=== PATIENT | male | born 1945 | race Caucasian/White ===

== ENCOUNTER 2018-06-10 22:22 | Emergency (ER) | payer MEDICARE, SELFPAY ==
--- NOTE | 2018-06-10 22:34 | DI.RAD.S_ITS ---
PROCEDURE: XR WRIST RT MIN 3V INDICATIONS: obvious deformity TECHNIQUE: 2 views of the wrist were acquired. COMPARISON: None. FINDINGS: Bones: There is a comminuted fracture in the distal radial metaphysis with mild displacement and angulation. There is old fracture and deformity of the trapezium and the first metacarpal. 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 No suspicious bony lesions. There is osteopenia. Scaphoid view: Scaphoid appears intact. Soft tissues: No suspicious soft tissue calcifications. Soft tissue swelling IMPRESSION: 1. Comminuted radial metaphyseal fracture with mild displacement and angulation. 2. Old fracture/deformity of trapezium and the first metacarpal. 3. 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 4. Osteopenia. Dictated by: Nilton Gonzalez M.D. on 06/11/2018 at 8:41 Approved by: Nilton Gonzalez M.D. on 06/11/2018 at 8:44
--- NOTE | 2018-06-10 22:34 | DI.RAD.S_ITS ---
PROCEDURE: XR FINGER RT MIN 2V INDICATIONS: obvious deformity TECHNIQUE: AP hand, 2 views of the third finger(s) acquired. COMPARISON: None. FINDINGS: Bones: There is posterior dislocation of the Seldinger at the proximal interphalangeal joint. Comminuted radial metaphyseal fracture is present without definite involvement at the radiocarpal joint. There is old fracture/deformity of the first metacarpal. Soft tissues: No suspicious soft tissue calcifications. IMPRESSION: 1. Posterior dislocation of the third finger at the proximal interphalangeal joint. 2. Comminuted radial metaphyseal fracture. Please see wrist x-ray for detail. Dictated by: Nilton Gonzalez M.D. on 06/11/2018 at 8:37 Transcribed by: BLANCA on 06/11/2018 at 8:41 Approved by: Nilton Gonzalez M.D. on 06/11/2018 at 10:25
[2018-06-10 22:36] VITALS: BP 125/56; PULSE 86; RESP 16; TEMP 37; O2SAT 100; BMI 27.3
[2018-06-10 22:49] LABS: Add Manual Diff / Slide Review NO; Basophils Percent Auto 0.5 % (0-2); Eosinophils Percent Auto 0.4 % (2-4); Hemoglobin 14.2 g/dL (13.5-17.5); Lymphocytes Percent Auto 19.7 % (25-40); Mean Corpuscular HGB Conc 33.8 % (30-36); Mean Corpuscular Hemoglobin 32.7 PG (26-34); Mean Corpuscular Volume 96.8 fL (80-100); Monocytes Percent Auto 8.2 % (3-14); Neutrophils Absolute Auto 7000 /uL (3000-5900); Neutrophils Percent Auto 71.2 % (50-75); Platelet Count 219 X10^3/uL (150-400); Red Blood Cell Count 4.34 X10^6/uL (4.5-5.9); Red Cell Distribution Width 13.6 % (11.6-14.8); White Blood Cell Count 9.8 X10^3/uL (4.5-11.0)
[2018-06-10] MEDS: MIDAZOLAM 5 MG/ML VIAL NASAL (22:50)
[2018-06-10] MEDS: fentaNYL 100 MCG/2 ML INJ 50 MCG NASAL (22:50)
[2018-06-10 22:51] LABS: Blood Urea Nitrogen 24 mg/dL (9-20); Calcium 9.3 mg/dL (8.4-10.2); Carbon Dioxide 25 mmol/L (22-32); Chloride 103 mmol/L (98-107); Estimated Glomerular Filt Rate > 60.0 mL/min (>60); Glucose 163 mg/dL (80-110); HEMOLYSIS < 15 (0-50); Sodium 140 mmol/L (137-145)
[2018-06-10 22:58] VITALS: BP 125/56; PULSE 86; RESP 16; TEMP 37; O2SAT 100; BMI 27.3
[2018-06-11] VITALS (9 sets, daily range): BP systolic 96–159; BP diastolic 68–82; PULSE 78–83; RESP 12–19; O2SAT 96–100
--- NOTE | 2018-06-11 00:29 | DI.RAD.S_ITS ---
PROCEDURE: XR WRIST RT 2V INDICATIONS: post reduction TECHNIQUE: 2 views of the wrist were acquired. COMPARISON: [facility], CR, XR WRIST RT MIN 3V, 06/10/2018, 22:59. [facility], CR, XR FINGER RT MIN 2V, 06/10/2018, 22:53. FINDINGS: Bones: There is a comminuted distal radial metaphyseal fracture. Alignment is improved. Dislocation at the third proximal interphalangeal joint has been reduced. Old fracture deformity of the trapezium and the first metacarpal. Soft tissues: No suspicious soft tissue calcifications. IMPRESSION: 1. Comminuted distal radial metaphyseal fracture without definitive involvement of the articular surface. There is improved alignment after closed reduction. 2. The third finger dislocation at the proximal interphalangeal joint has been reduced. The alignment is anatomic. No definitive fracture but bone details are obscured by overlying cast. Dictated by: Nilton Gonzalez M.D. on 06/11/2018 at 8:46 Approved by: Nilton Gonzalez M.D. on 06/11/2018 at 8:50
[2018-06-11] MEDS: PROPOFOL 200 MG/20 ML VIAL 110 MG IV (00:41)
[2018-06-11] MEDS: OXYCODONE/ACETAMINOPHEN 5/325 TABLET 2 TAB PO (00:52)
[2018-06-11] MEDS: fentaNYL 100 MCG/2 ML INJ 25 MCG IV (00:53)
[2018-06-11] MEDS: OXYCODONE/APAP 5/325 PREPACK 1 BOTTLE MISC (02:00)
--- NOTE | 2018-06-11 03:12 | ED_ITS ---
HPI - Extremity Injury (Upper) General Chief Complaint: Extremity Injury, Upper Stated Complaint: Possible Hand Fracture Time Seen by Provider: 06/10/18 22:34 Source: patient and family Mode of arrival: ambulatory Limitations: no limitations History of Present Illness HPI narrative: 72-year-old male presents with his and a chief complaint of a significant right hand and wrist injury. He had stepped outside and had a mechanical fall, tripping on an outstretched wrist and obviously fractured and or dislocated his hand and wrist. He presents with significant pain in the tremendous deformity including numbness tingling, pallor and significant pain to right hand and fingers. He denies any head neck or back pain. He denies any chest pain or shortness of breath. He states his fall was purely mechanical. He states he last ate a few hours ago. He is left hand dominant MD complaint: injury to: right Onset (ago): minute(s) Other Extremity Injury: Right: fingers, hand and wrist Other injuries: none Handedness: left Place: home Severity: severe Relieving factors: none Exacerbating factors: none Context: fall and direct blow Associated symptoms: weakness and numbness Related Data Home Medications Medication Instructions Recorded Confirmed atorvastatin 10 mg tablet 5 mg PO DAILY tab 03/25/18 06/04/18 coenzyme Q10 100 mg capsule 100 mg PO DAILY 03/25/18 06/04/18 etodolac 400 mg tablet 400 mg PO BID 03/25/18 06/04/18 felodipine ER 5 mg tablet,extended 5 mg PO DAILY 03/25/18 06/04/18 release 24 hr finasteride 1 mg tablet 1 mg PO DAILY 03/25/18 06/04/18 sertraline 50 mg tablet 50 mg PO DAILY 03/25/18 06/04/18 trazodone 50 mg tablet 50 mg PO BEDTIME PRN 03/25/18 06/04/18 Previous Rx's Medication Instructions Recorded oxycodone 5 mg PO Q4-6H PRN #30 cap 06/11/18 Allergies Allergy/AdvReac Type Severity Reaction Status Date / Time No Known Drug Allergies Allergy Unverified 03/25/18 13:30 Review of Systems Review of Systems All systems reviewed & are unremarkable except as noted in HPI and below Constitutional Denies chills, Denies fever(s), Denies lethargy and Denies weakness Eyes Denies change in vision, Denies eye discharge, Denies irritation and Denies loss of vision ENT Ears, Nose, Mouth, and Throat: Denies change in voice, Denies neck pain and Denies sore throat Cardiovascular Denies chest pain, Denies irregular heart rhythm, Denies lightheadedness, Denies palpitations, Denies dyspnea, Denies dyspnea on exertion and Denies orthopnea Respiratory Denies cough, Denies dyspnea, Denies dyspnea on exertion and Denies wheezing Gastrointestinal Gastrointestinal: Denies abdominal pain, Denies change in bowel habits, Denies diarrhea, Denies nausea and Denies vomiting Genitourinary Denies hematuria, Denies flank pain, Denies urinary incontinence and Denies urinary urgency Musculoskeletal Reports deformity, Reports joint swelling, Reports limited range of motion, Denies neck pain, Reports numbness and Reports tingling Integumentary/Breasts Denies pruritus, Denies erythema, Denies rash and Denies wounds Neurologic Denies confusion, Denies loss of vision, Reports numbness, Reports tingling and Denies weakness Psychiatric Denies anxiety, Denies confusion, Denies depression, Denies homicidal ideation and Denies suicidal ideation Endocrine Denies palpitations Hematologic/Lymphatic Denies easy bruising Allergic/Immunologic Denies wheezing PFSH Medical History Anxiety (Acute) Cervical stenosis of spine (Acute) Depression (Acute) Hyperlipidemia (Acute) Hypertension (Acute) Inguinal hernia (Acute) Osteoarthritis (Acute) Surgical History Ankylosis, left hip (Chronic) H/O foot surgery (Resolved) Family History Father Cancer Social History marital status: household members: spouse lives independently: Yes Previous occupational history: [employer] Smoking Status: Never smoker alcohol intake: never substance use type: does not use Exam Narrative Exam Narrative: 72-year-old male in significant distress, clutching his right hand and wrist, in obvious tremendous pain Initial Vital Signs Initial Vital Signs: Vital Signs Temperature 98.6 F 06/10/18 22:36 Pulse Rate 86 06/10/18 22:36 Respiratory Rate 16 06/10/18 22:36 Blood Pressure 125/56 H 06/10/18 22:36 Pulse Oximetry 100 06/10/18 22:36 Const General: cooperative, well developed and acute distress Nutritional Appearance: well nourished Orientation: alert, awake, oriented x3 and not confused HENND Head: normocephalic and atraumatic Ears: external ears normal and TM's normal bilaterally Nose: external nose normal and No nasal discharge Face and sinus: sinuses nontender, face symmetric, no sinus tenderness and No dry mucous membranes Mouth: oral mucosae normal and moist mucous membranes Teeth and gingiva: dentition normal Throat: tonsils normal and uvula midline Eyes General: appearance normal, both eyes and all related structures Eyelids: eyelids normal Conjunctivae: conjunctivae normal Sclera: sclerae normal Pupils: PERRL EOM: EOM intact bilaterally Neck Neck: normal visual inspection, trachea midline, No lymphadenopathy, No midline deformity and No JVD Lymphatic: No lymphedema Cardio Rate: regular rate Rhythm: regular rhythm Heart Sounds: no click, no gallops, no murmurs and no rubs Pulses: normal peripheral pulses Back/Spine/Pelvis Back: No CVA tenderness Cervical Spine: cervical ROM normal and No pain with cervical ROM Thoracic/Lumbar Spine: thoracic and lumbar spine normal to inspection Skin General: no rashes or lesions noted, No jaundice and No petechiae Neuro General: alert, awake, oriented x3 and gait normal Cognition: normal cognition Speech: speech normal Gait: normal gait Motor: strength abnormal (Strength and right wrist and fingers compromise) Sensory Exam: upper extremity Extrem Right upper extremity: hand Procedures Orthopedic Fracture Reduction Fracture #1: Time Out Performed: Yes Side: right Fracture Reduction Location: radius Analgesia: other (Initially fentanyl and Versed given, not with intent to sedate, but with intent to provide analgesia and comfort while emergent neurovascular compromise is addressed) Technique: traction/counter-traction Post Reduction X-rays Demonstrate: anatomical reduction Post-reduction neuro exam: intact Post-reduction vascular exam: intact Additional Comments: After initial reduction patient has IV placed and x- rays are performed noting fracture with some displacement at the distal radius and a dislocated middle finger. A 2nd reduction performed with splint applied, this time true procedural sedation with the use of propofol (110 mg). Respiratory therapy and nursing at the bedside with appropriate monitoring including end-tidal CO2 and blood pressure. Suction and pulse ox at the bedside. Orthopedic Splinting/Casting Injury #1: Side: right Upper Extremity Injury Location: wrist Upper Extremity Immobilizer: sling/shoulder immobilizer and sugar tong splint Procedural Sedation Patient Age: Patient is 5yrs or older Indication: fracture/dislocation reduction Presedation Evaluation: Patient has obvious fracture dislocation with neurovascular compromise ASA Class: II Mallampati Airway Classification: Class I Preparation: personnel monitor applied and pulse oximeter Fentanyl: IV Fentanyl dose (mcg): 50 Midazolam: intranasal Midazolam dose (mg): 5 ED Sedation Level: Minimal Patient Tolerated Procedure: Well Complications: none Course Orders Ordered: ED Orders 06/10/18 22:28 Basic Metabolic Panel Stat Complete Blood Count AUTO DIFF Stat 06/10/18 22:34 XR finger RT min 2V Stat XR wrist RT min 3V Stat 06/11/18 00:29 XR wrist RT 2V Stat Discontinued Medications Fentanyl (Sublimaze) 50 mcg NASAL NOW ONE Stop: 06/10/18 22:36 Last Admin: 06/10/18 22:50 Dose: 50 mcg Fentanyl (Sublimaze) 25 mcg IV NOW ONE Stop: 06/11/18 00:49 Last Admin: 06/11/18 00:53 Dose: 25 mcg Midazolam HCl (Versed) 5 mg NASAL NOW ONE Stop: 06/10/18 22:36 Last Admin: 06/10/18 22:50 Dose: 5 mg Oxycodone/Acetaminophen (Percocet 5/325) 2 tab PO NOW ONE Stop: 06/11/18 00:49 Last Admin: 06/11/18 00:52 Dose: 2 tab Oxycodone/Acetaminophen (Endocet 5/325 Prepack) 1 bottle MISC SEEINSTR ONE Stop: 06/11/18 01:56 Propofol (Diprivan) 110 mg IV NOW ONE Stop: 06/11/18 00:30 Last Admin: 06/11/18 00:41 Dose: 110 mg Reevaluation(s) Reevaluation #1: Patient demonstrates tremendous improvements of pain and neurovascular exam after immediate, emergent reduction. Consultations Consultation #1: Dr. harris has reviewed images and agrees with plan. He request patient be kept NPO and will likely go to the OR later today. He will call the patient at home Vital Signs - 8 hr 06/10/18 22:36 06/10/18 22:58 Temperature 98.6 F 98.6 F Pulse Rate 86 86 Respiratory Rate 16 16 Blood Pressure 125/56 H 125/56 H Pulse Oximetry 100 100 MDM - Extremity Injury (Upper) Lab Data Result diagrams: 06/10/18 22:28 06/10/18 22:28 Lab Results 06/10/18 06/10/18 Range/Units 22:28 22:28 WBC 9.8 (4.5-11.0) X10^3/uL RBC 4.34 L (4.5-5.9) X10^6/uL Hgb 14.2 (13.5-17.5) g/dL Hct 42.0 (41-53) % MCV 96.8 (80-100) fL MCH 32.7 (26-34) PG MCHC 33.8 (30-36) % RDW 13.6 (11.6-14.8) % Plt Count 219 (150-400) X10^3/uL Neut % (Auto) 71.2 (50-75) % Lymph % (Auto) 19.7 L (25-40) % [place] % (Auto) 8.2 (3-14) % Eos % (Auto) 0.4 L (2-4) % Baso % (Auto) 0.5 (0-2) % Neut # (Auto) 7000 H (2175-5058) /uL Sodium 140 (137-145) mmol/L Potassium 4.0 (3.4-5.1) mmol/L Chloride 103 (98-107) mmol/L Carbon Dioxide 25 (22-32) mmol/L BUN 24 H (9-20) mg/dL Creatinine 1.00 (0.66-1.25) mg/dL Estimated GFR > 60.0 (>60) mL/min BUN/Creatinine Ratio 24.0 H (6-22) Glucose 163 H (80-110) mg/dL Calcium 9.3 (8.4-10.2) mg/dL Discharge Plan Departure Patient Disposition: Home Clinical Impression: Fracture of wrist, Dislocated finger Instructions: DI for Wrist Fracture Activity Restrictions/Additional Instructions: *You have been diagnosed with [ right distal radius fracture with middle finger disclocation ] *What to do: *Take medications as directed. Please consider taking stool softeners starting today to avoid significant constipation which can happen with opioid pain meds DO NOT EAT OR DRINK ANYTHING as you will likely have surgery later today *Dr. Greenfield will call you later this morning to discuss the plan. If you don't hear from him by 10am please call the office, info is provided below *Return to ER if you should have any new, worsening or concerning symptoms , such as [ increasing pain, numbness, tingling or other bothersome symptoms] Prescriptions: New oxycodone 5 mg capsule 5 mg PO Q4-6H PRN (Reason: pain) Qty: 30 RF: 0 No Action trazodone 50 mg tablet 50 mg PO BEDTIME PRN (Reason: Sleep) RF: 0 atorvastatin [Lipitor] 10 mg tablet 5 mg PO DAILY RF: 0 felodipine 5 mg tablet extended release 24 hr 5 mg PO DAILY RF: 0 etodolac 400 mg tablet 400 mg PO BID RF: 0 sertraline [Zoloft] 50 mg tablet 50 mg PO DAILY RF: 0 finasteride 1 mg tablet 1 mg PO DAILY RF: 0 coenzyme Q10 [CoQ-10] 100 mg capsule 100 mg PO DAILY RF: 0 Referrals: Bradford Greenfield MD [Physician] - Erin Harvey MD [Primary Care Provider] -
== END 2018-06-11 02:00 | disposition home or self-care (01) ==
PROVIDERS: Emergency Provider Emergency Medicine; Family Provider Family Medicine; PCP Family Medicine
DX: S62.101A Fracture of unspecified carpal bone, right wrist, initial encounter for closed fracture (principal); S63.252A Unspecified dislocation of right middle finger, initial encounter; W01.0XXA Fall on same level from slipping, tripping and stumbling without subsequent striking against object, initial encounter
CPT/HCPCS: 25505; 36591; 73100; 73110; 73140; 80048; 85025; 94770; 96374; 99152; 99283; 99285; J2250; J2704; J3010

== ENCOUNTER 2018-06-11 14:27 | Day surgery (SDC) | payer MEDICARE, SELFPAY ==
[2018-06-11] VITALS (7 sets, daily range): BP systolic 129–151; BP diastolic 70–78; PULSE 85–90; RESP 5–20; TEMP 36.4–36.8; O2SAT 90–99; BMI 26.4
--- NOTE | 2018-06-11 | DI.RAD.S_ITS ---
PROCEDURE: XR WRIST RT 2V INDICATIONS: RIGHT WRIST ORIF TECHNIQUE: 2 views of the wrist were acquired. COMPARISON: [facility], , XR WRIST RT 2V, 06/11/2018, 0:29. FINDINGS: 2 intraoperative fluoroscopic views of the right wrist demonstrate interval open reduction and internal fixation of the previous identified distal radial fracture. There is improved alignment. A volar fixation plate and multiple fixation screws are demonstrated. IMPRESSION: 1. Postsurgical changes status post ORIF of distal radius fracture. Dictated by: George Nye M.D. on 06/11/2018 at 18:18 Approved by: George Nye M.D. on 06/11/2018 at 18:19
[2018-06-11] MEDS: LACTATED RINGERS 1,000 ML 42 ML IV (15:10)
--- NOTE | 2018-06-11 16:49 | PM.PREOP ---
Pre-operative Note Interval Note Pre-op Check: Yes History & Physical Reviewed by Physician and Yes Exam Performed Changes: No
--- NOTE | 2018-06-11 16:57 | P.OP_ITS ---
Operative Date/Time/Diagnoses Date of procedure: 06/11/18 Time of procedure: 18:45 Pre-op diagnosis: Right distal radius fracture, extra-articular Right middle finger PIP dislocation Post-op diagnosis: same Procedure & Clinicians Procedure: ORIF of right distal radius fracture Indications: [age] year old male with a displaced distal radius fracture. It was partially reduced in the emergency room last night. He also had a dislocated PIP joint of the middle finger that was also reduced in the ER. It was felt that he would greatly benefit from operative reduction and stabilization. Risks and benefits of surgery were discussed and appropriate consents were obtained. Surgeon: Bradford Greenfield Click Yes if Unassisted: Yes Anesthesia Type: General Operative Notes Findings: None Closure Type: primary Specimen(s): none sent Implants & Drains: [employer] volar plate Estimated Blood Loss (mL): 5 Procedure in detail: The patient was brought to the operating room and intubated on the table. Time-out was performed. Attention was turned towards the well-marked right wrist. Preoperative antibiotics were given. The arm was prepped and draped in the standard sterile fashion. An Esmarch was used to exsanguinate the limb and the tourniquet was inflated. A 8 cm incision was made along the FCR course curving radially distally across the wrist crease. There was a partial laceration of about 20 percent of the radial aspect of the FCR. We sharply dissected through the FCR tendon sheath and retracted the tendon and then came down to the quadratus. This was elevated off the distal radius. The fracture was exposed and cleaned up with a curette and washed. We then reduced the fracture and confirmed under x-ray. We then took a [employer] volar plate. It was placed against the bone and x-ray was taken to confirm positioning. One screw was placed through the shaft in the variable hole. This was checked under x-ray and tightened down. We then placed distal row pegs and proximal row screws in the distal fragment. We started along the ulnar column and then finished out in the styloid. We then went back and placed the final shaft screws. Final x-rays were taken. We then used a 2-0 ticron stitch to repair the partial FCR tear with a modified Durant stitch. The wound was irrigated. The superficial skin were closed. The patient was placed in a well-padded volar splint. The middle finger was mp-taped to the index finger. They are extubated and brought to recovery with no complications. Complications: none Condition: stable Disposition: PACU Plan for aftercare: Outpatient. Start hand therapy after 1st follow-up visit. No restrictions for the tendon. The PIP dislocation can just be treated with mp taping as it is stable.
[2018-06-11] MEDS: CEFAZOLIN 2 GM/100 ML FROZ.PIGGY IV (17:12)
--- NOTE | 2018-06-11 17:20 | SUR.PREOP ---
Block start time [1652] . Monitoring initiated and maintained throughout procedure. Oxygen and medications given per anesthesiologist instructions. Patient remained stable throughout procedure, no adverse reactions noted. Block end time []1700.
--- NOTE | 2018-06-11 17:38 | SUR.OPER ---
Supine on padded OR bed, head on pillow, right arm secured on padded arm boards at <90 degrees abduction,left arm on hand table legs uncrossed, safety belt at thigh, tape over blanket over lower legs.
--- NOTE | 2018-06-11 17:48 | PM.PROC.1 ---
Procedures Date/Time Date of procedure: 06/11/18 Time of procedure: 16:50 General Procedure description: Ultrasound guided supraclavicular brachial plexus nerve block for post op pain control after right distal radius ORIF by Dr. Greenfield. Risk and benefits of procedure discussed with patient. ASA monitoring applied to patient. O2 given via nasal cannula. 1 mg Versed and 50 mcg fentanyl given for procedural sedation. Skin site was prepped with chlorhexidine and allowed to fully dry. Sterile gloves, mask, hat and probe cover were used to maintain sterility. 2% lidocaine and 30ga needle was used to make a small skin wheal at needle insertion site. Under ultrasound guidance, a 21ga 50mm Pajunk needle was directed just under the clavicle toward the subclavian artery from lateral approach. Patient reported no parasthesias. After negative aspiration, 20 mL 0.5% ropivicaine and 10mg dexamethasone were injected around brachial plexus clusters both superior, posterior and anterior to the artery. Patient tolerated procedure well.
--- NOTE | 2018-06-11 17:53 | P.PCN_ITS ---
Procedures Date/Time Date of procedure: 06/11/18 Time of procedure: 16:50 General Procedure description: Ultrasound guided supraclavicular brachial plexus nerve block for post op pain control after right distal radius ORIF by Dr. Greenfield. Risk and benefits of procedure discussed with patient. ASA monitoring applied to patient. O2 given via nasal cannula. 1 mg Versed and 50 mcg fentanyl given for procedural sedation. Skin site was prepped with chlorhexidine and allowed to fully dry. Sterile gloves, mask, hat and probe cover were used to maintain sterility. 2% lidocaine and 30ga needle was used to make a small skin wheal at needle insertion site. Under ultrasound guidance, a 21ga 50mm Pajunk needle was directed just under the clavicle toward the subclavian artery from lateral approach. Patient reported no parasthesias. After negative aspiration, 20 mL 0.5 % ropivicaine and 10mg dexamethasone were injected around brachial plexus clusters both superior, posterior and anterior to the artery. Patient tolerated procedure well.
--- NOTE | 2018-06-11 19:00 | SUR.PHASEI ---
stable pacu stay, dr anthony to bedside, mp taped pt's r 2nd and 3rd finger. to opd.
--- NOTE | 2018-06-11 20:03 | SUR.PHASEII ---
late entry: brought in, watching small grandchild, all d/c instructions discussed. anxious to leave to get grandchild to bed. pt stated he was ready to go soon after arriving to opd, vss, dressing c/d/i, neuro assessment unchanged. assisted to dress, sling placed on pt. pt left in stable condition.
== END 2018-06-11 19:40 | disposition home or self-care (01) ==
PROVIDERS: Family Provider Family Medicine; PCP Family Medicine; Visit Provider Orthopaedic Surgery
PROC: (CPT 25607; principal; 2018-06-11 15:15)
DX: S52.551A Other extraarticular fracture of lower end of right radius, initial encounter for closed fracture (principal); S63.282A Dislocation of proximal interphalangeal joint of right middle finger, initial encounter; G89.18 Other acute postprocedural pain; W10.8XXA Fall (on) (from) other stairs and steps, initial encounter; Y92.008 Other place in unspecified non-institutional (private) residence as the place of occurrence of the external cause; I10 Essential (primary) hypertension; I73.00 Raynaud's syndrome without gangrene; M81.0 Age-related osteoporosis without current pathological fracture; E78.5 Hyperlipidemia, unspecified; F41.9 Anxiety disorder, unspecified; M19.90 Unspecified osteoarthritis, unspecified site
CPT/HCPCS: 25607; 64415; 64450; 73100; 76000; 93005; 93010; J0690; J1100; J2250; J2405; J2704; J2795; J3010

== ENCOUNTER 2018-06-16 06:36 | Day surgery (SDC) | payer MEDICARE, SELFPAY ==
[2018-06-04 07:31] VITALS: BMI 26.4
[2018-06-16] VITALS (9 sets, daily range): BP systolic 120–140; BP diastolic 63–85; PULSE 81–98; RESP 8–20; TEMP 36.3–36.9; O2SAT 91–100; BMI 25.2
[2018-06-16] MEDS: LACTATED RINGERS 1,000 ML 100 ML IV ×2 (07:20→08:48)
[2018-06-16] MEDS: CEFAZOLIN 2 GM/100 ML FROZ.PIGGY IV (07:55)
--- NOTE | 2018-06-16 08:15 | SUR.OPER ---
Supine on padded OR bed, head on pillow, arms secured on padded arm boards at <90 degrees abduction, legs uncrossed, safety belt at thigh.
[2018-06-16] MEDS: BUPIVACAINE 0.5% (PF) VIAL 30 ML INJ (08:22)
[2018-06-16] MEDS: LIDOCAINE 1% W/EPI INJ 20 ML INJ (08:22)
[2018-06-16] MEDS: SODIUM CHLORIDE IRRIG SOLUTION 250 ML, CEFAZOLIN VIAL 1 GM IRR (08:25)
--- NOTE | 2018-06-16 09:28 | PM.PREOP ---
Pre-operative Note Interval Note Pre-op Check: Yes History & Physical Reviewed by Physician and Yes Exam Performed Changes: No H&P completed within 30 days and has changed as indicated here:: Patient seen and examined in preoperative area. He has been marked for surgery. History physical examination as documented June 15, 2018 has not changed. Documented on the chart. Proceed with left inguinal hernia repair today as planned.
--- NOTE | 2018-06-16 09:37 | P.OP_ITS ---
Operative Date/Time/Diagnoses Date of procedure: 06/16/18 Time of procedure: 09:29 Pre-op diagnosis: Symptomatic left inguinal hernia Post-op diagnosis: same Procedure & Clinicians Procedure: Open left inguinal hernia repair with mesh Same procedure as scheduled: Yes Indications: 72-year-old male who presented with painful intermittent left inguinal mass. Examination and evaluation were consistent with hernia. Open repair with mesh was recommended. Surgeon: Mauro Zayas Click Yes if Unassisted: Yes Anesthesia Type: General Operative Notes Findings: 1. Large direct inguinal hernia 2. Intact ilioinguinal nerve at the conclusion of the case 3. No evidence of indirect inguinal hernia 4. Testicles are normal descended position bilaterally at the conclusion of the case Closure Type: primary Specimen(s): none sent Implants & Drains: Large Pro Loop polypropylene mesh plug and onlay patch left inguinal canal Estimated Blood Loss (mL): 5 Blood products transfused: none Procedure in detail: After obtaining informed consent the patient was brought to the operating room placed supine on the table. After satisfactory induction of anesthesia the abdomen and genitalia were prepped and draped in usual sterile fashion. A SCOAP time-out was performed per standard protocol. Transverse incision was designed across the lower portion of the left inguinal canal for distance of approximately 4 cm. Area was infiltrated with a 1 :1 mixture 1% lidocaine with 1 100,000 epinephrine and 0.5% plain Marcaine for postoperative analgesia. Skin incision was created with 10 scalpel blade. Bovie was used to achieve hemostasis and carried the dissection down to the external oblique fascia. Weitlaner retractor was used to provide exposure. External oblique fascia were then divided in the direction of the fibers with a 15 scalpel blade followed by Metzenbaum scissors to the level of the external inguinal ring. Edges of the fascia were secured with hemostats. Blunt dissection revealed the rectus fascia medially, conjoined tendon anteriorly, and iliopubic tract laterally. Spermatic cord was encircled bluntly with the surgeon's fingers followed by a [place] drain. Meticulous blunt dissection using DeBakey forceps was employed to skeletonize the spermatic cord revealing the findings as above. Direct hernia sac was reduced and mesh was brought onto the operative field. There was no evidence of a indirect hernia sac, and the obliterated processus vaginalis was identified. Mesh was soaked in Ancef solution and the large plug was placed through the direct hernia defect. Plug was secured with interrupted 2 0 Vicryl suture to adjacent fascia and cremasteric muscle fibers. Onlay patch was also soaked in Ancef solution and placed over the floor the inguinal canal. Patch was secured with interrupted 0 Tycron sutures. Anteriorly the mesh was secured to the conjoined tendon while medially it was secured to the rectus fascia. Laterally the mesh was secured to the iliopubic tract. Tails of the mesh were brought around the spermatic cord and placed deep to the external oblique fascia then secured with a single 0 Tycron suture. The defect in the mesh around the spermatic cord admitted a Caroline clamp easily thereby verifying no strangulation of the spermatic cord. Cord was placed back into its usual anatomic position. Wound was irrigated with copious amounts of sterile saline solution and hemostasis was verified. External oblique fascia was closed over the cord using running 3 0 Vicryl suture. Subcutaneous tissue was reapproximated with interrupted 3 0 Vicryl suture. Skin was closed in a running subcuticular fashion with 4 0 Monocryl suture. Dermal adhesive was applied to the skin. Testicles were noted to be in normal position at the conclusion of the case. Anesthesia was reversed and patient extubated in the operating room. He was taken recovery in stable condition. Complications: none Condition: stable Disposition: PACU Plan for aftercare: 1. Discharged home 2. Follow up in surgery Clinic in 2 weeks
== END 2018-06-16 12:00 | disposition home or self-care (01) ==
PROVIDERS: Family Provider Family Medicine; PCP Family Medicine; Visit Provider Surgery
DX: K40.90 Unilateral inguinal hernia, without obstruction or gangrene, not specified as recurrent (principal); F41.9 Anxiety disorder, unspecified; I10 Essential (primary) hypertension
CPT/HCPCS: 49505; C1781; J0690; J1100; J2405; J2704; J3010

== ENCOUNTER → 2018-06-16 12:11 | Day surgery (SDC) | payer MEDICARE, SELFPAY ==
[2018-06-16] VITALS (9 sets, daily range): BP systolic 120–140; BP diastolic 63–85; PULSE 81–98; RESP 8–20; TEMP 36.3–36.9; O2SAT 91–100; BMI 25.2
== END | disposition home or self-care (01) ==
PROVIDERS: Family Provider Family Medicine; PCP Family Medicine; Visit Provider Surgery
CPT/HCPCS: J0690

== ENCOUNTER → 2022-04-08 09:44 | Outpatient (CLI) | payer MEDICARE, OTHER, SELFPAY ==
[2022-04-08 12:35] LABS: COVID19 -Nasal RAPID Negative (Negative)
== END ==
PROVIDERS: Family Provider Family Medicine; PCP Family Medicine; Visit Provider Surgery
DX: Z20.822 Contact with and (suspected) exposure to COVID-19 (principal); Z01.812 Encounter for preprocedural laboratory examination
CPT/HCPCS: 87635; C9803

== ENCOUNTER 2022-04-09 07:47 | Day surgery (SDC) | payer MEDICARE, OTHER, SELFPAY ==
[2022-04-09 08:07] VITALS: BP 142/77; PULSE 94; RESP 16; TEMP 36.1; O2SAT 98; BMI 25.1
[2022-04-09] MEDS: LACTATED RINGERS 1,000 ML 200 ML IV (08:07)
--- NOTE | 2022-04-09 08:54 | P.HP_ITS ---
History of Present Illness History of Present Illness Date Patient Seen: 04/09/22 Time Patient Seen: 08:54 [place] [facility] [place] The patient presents for colorectal screening. Previous examination 5 years ago was normal. He has a family history of both sister and father who had colon cancer.On further history denies any recent gastrointestinal symptoms. No nausea, vomiting, abdominal pain, loss of appetite, unexplained weight loss, change in bowel habits, diarrhea, constipation, melena, hematochezia, or bright red blood per rectum. Patient History Medical History Anxiety Arthritis Cervical stenosis of spine Depression Fracture of right upper extremity History of blood transfusion Hyperlipidemia Hypertension Inguinal hernia Osteoarthritis TBI (traumatic brain injury) (~1973) Surgical History Ankylosis, left hip H/O foot surgery History of bilateral total hip arthroplasty History of open reduction and internal fixation (ORIF) procedure Family & Social History Family History Father Cancer Social History: household members spouse lives independently Yes Tobacco & Substance use: Smoking Status Never smoker alcohol intake never Substance Use Type does not use Meds Home Medications and Allergies Home Medications Medication Instructions Recorded Confirmed Type atorvastatin 10 mg tablet (Lipitor) 5 mg PO DAILY 03/25/18 04/09/22 History coenzyme Q10 100 mg capsule 100 mg PO DAILY 03/25/18 04/09/22 History (CoQ-10) etodolac 400 mg tablet 400 mg PO BID 03/25/18 04/09/22 History felodipine 5 mg tablet,extended 5 mg PO DAILY 03/25/18 04/09/22 History release 24 hr finasteride 1 mg tablet 1 mg PO DAILY 03/25/18 04/09/22 History sertraline 50 mg tablet (Zoloft) 50 mg PO DAILY 03/25/18 04/09/22 History trazodone 50 mg tablet 50 mg PO BEDTIME PRN Sleep 03/25/18 06/29/18 History sodium,potassium,mag sulfates 17.5 See Rx Instructions PO .COMPLEX 03/04/22 Rx gram-3.13 gram-1.6 gram oral soln #354 mL (Suprep Bowel Prep Kit) Allergies Allergy/AdvReac Type Severity Reaction Status Date / Time No Known Drug Allergies Allergy Verified 06/16/18 07:07 Exam Vital Signs (past 8 hours): - 04/09/22 08:07 Temperature 96.9 F L Pulse Rate 94 H Respiratory Rate 16 Blood Pressure 142/77 H Pulse Oximetry 98 Oxygen Delivery Method Room Air Oxygen Delivery Method Room Air Narrative Exam Narrative: General adult male alert oriented no acute distress Chest nonlabored respirations Extremities warm well perfused Assessment & Plan Assessment & Plan narrative: The patient requires colorectal screening and colonoscopy is recommended. Te chnical details were discussed. Risks, benefits, alternatives explained. Risks including but not limited to myocardial infarction, aspiration, bleeding, pain, missed lesion, incomplete examination, need for further radiographic studies, colonic perforation, and need for major abdominal surgery were discussed. All questions were answered to their satisfaction, and they are in agreement with this plan. Time Spent With Patient Critical Care time: I spent a total of [] minutes of critical care time on this patient's care today; this time is exclusive of procedural time.
[2022-04-09] MEDS: MIDAZOLAM 5 MG/5 ML VIAL 4 MG IV (09:08)
[2022-04-09] MEDS: fentaNYL 250 MCG/5 ML INJ 100 MCG IV (09:08)
--- NOTE | 2022-04-09 09:19 | PM.OP.COLON ---
Operative Date/Time/Diagnoses Date of procedure: 04/09/22 Time of procedure: 09:19 Pre-op diagnosis: Family history of colon cancer Post-op diagnosis: same Procedure & Clinicians Study performed: Colonoscopy Same procedure as scheduled: Yes Indications: Family history colon cancer Surgeon: Vlad Holt Procedure Notes Procedure in detail: Medications: Conscious sedation using 4 mg IV midazolam and 100mcg IV of fentanyl The history and physical was performed/updated and the patient is ASA class is 2. The procedure was discussed in detail with the patient. Potential risks complications including infection, bleeding, missed diagnosis, perforation, need for surgery, and were explained. Their questions were answered and informed consent was obtained. Patient was brought to the procedure room and placed standard monitoring equipment. The patient's vital signs were monitored continuously throughout the entire procedure. Prior to starting time-out was performed. The patient was placed in the left lateral recumbent position. Procedural sedation was administered. Examination began with a thorough inspection of the perianal area there was no evidence of fissures, fistulae, external hemorrhoids or cutaneous malignancy. The colonoscopy scope was then placed into the anal canal and was advanced to the cecum, which was identified by the ileocecal valve, the appendiceal orifice and the confluence of the taenia. The scope was then slowly withdrawn examining colon thoroughly in all directions, irrigating it of any residual stool. FINDINGS 1. No masses or polyps 2. Andrews diverticulosis The patient tolerated the procedure well. They will be discharged once criteria are met. The prep was of good/excellent quality. The withdrawl time was 6 minutes. The sedation time was 12 minutes. Specimen(s): none sent Complications: none Impression: Normal colonoscopy Post-procedure Recommendations: Colonoscopy in 5 years and High fiber diet Disposition: same day surgery
[2022-04-09 09:25] VITALS: BP 108/67; PULSE 84; RESP 14; TEMP 36.9; O2SAT 94
[2022-04-09 09:30] VITALS: BP 112/67; PULSE 84; RESP 12; O2SAT 94
[2022-04-09 09:35] VITALS: BP 111/68; PULSE 91; RESP 16; O2SAT 97
[2022-04-09 09:50] VITALS: BP 138/82; PULSE 86; RESP 16; TEMP 36.6
== END 2022-04-09 09:54 | disposition home or self-care (01) ==
PROVIDERS: Family Provider Family Medicine; PCP Family Medicine; Referring Provider Surgery; Visit Provider Surgery
PROC: 0DJD8ZZ Inspection of Lower Intestinal Tract, Via Natural or Artificial Opening Endoscopic (ICD-10-PCS; CPT 45378; principal; 2022-04-09 08:45)
DX: Z12.11 Encounter for screening for malignant neoplasm of colon (principal); K57.30 Diverticulosis of large intestine without perforation or abscess without bleeding; E78.5 Hyperlipidemia, unspecified; I10 Essential (primary) hypertension; F41.9 Anxiety disorder, unspecified; F32.A Depression, unspecified; Z80.0 Family history of malignant neoplasm of digestive organs
CPT/HCPCS: G0105; 99152; J2250; J3010

== ENCOUNTER → 2022-05-03 13:28 | Outpatient (CLI) | payer MEDICARE, OTHER, SELFPAY ==
[2022-05-03 14:22] LABS: Add Manual Diff / Slide Review NO; Basophils Absolute Auto 0 /uL (0-100); Basophils Percent Auto 0.8 % (0-2); Eosinophils Absolute Auto 100 /uL (0-450); Eosinophils Percent Auto 1.4 % (2-4); Hematocrit 42.1 % (41-53); Hemoglobin 14.6 g/dL (13.5-17.5); Lymphocytes Absolute Auto 1300 /uL (1100-4500); Lymphocytes Percent Auto 27.6 % (25-40); Mean Corpuscular HGB Conc 34.6 % (30-36); Mean Corpuscular Hemoglobin 32.9 PG (26-34); Mean Corpuscular Volume 95.3 fL (80-100); Monocytes Absolute Auto 400 /uL (0-900); Monocytes Percent Auto 8.9 % (3-14); Neutrophils Absolute Auto 3000 /uL (1500-7000); Neutrophils Percent Auto 61.3 % (50-75); Platelet Count 191 X10^3/uL (150-400); Red Blood Cell Count 4.42 X10^6/uL (4.5-5.9); Red Cell Distribution Width 13.4 % (11.6-14.8); White Blood Cell Count 4.9 X10^3/uL (4.5-11.0)
[2022-05-03 14:39] LABS: Erythrocyte Sedimentation Rate 2 MM/HR (0-15)
[2022-05-03 16:00] LABS: Alanine Aminotransferase 15 IU/L (<50); Albumin 4.1 g/dL (3.5-5.0); Albumin Globulin Ratio 1.7 (1.0-2.8); Alkaline Phosphatase 77 U/L (38-126); Aspartate Aminotransferase 32 IU/L (17-59); BUN Creatinine Ratio 20.9 (6-22); Bilirubin Total 0.6 mg/dL (0.2-1.3); Blood Urea Nitrogen 18 mg/dL (9-20); C-Reactive Protein Quant < 0.5 mg/dL (<1.0); Calcium 9.1 mg/dL (8.4-10.2); Carbon Dioxide 28 mmol/L (22-32); Chloride 104 mmol/L (98-107); Estimated Glomerular Filt Rate > 60 mL/min (>60); Globulin 2.4 g/dL (1.7-4.1); Glucose 104 mg/dL (80-110); HEMOLYSIS 20 (0-50); Potassium 4.9 mmol/L (3.4-5.1); Sodium 137 mmol/L (137-145); Total Protein 6.5 g/dL (6.3-8.2)
[2022-05-03 16:28] LABS: Thyroid Stimulating Hormone 0.554 uIU/mL (0.47-4.68)
== END ==
PROVIDERS: Family Provider Family Medicine; PCP Family Medicine; Referring Provider Family Medicine; Visit Provider Family Medicine
DX: H49.11 Fourth [trochlear] nerve palsy, right eye (principal); H53.8 Other visual disturbances
CPT/HCPCS: 36415; 80053; 84443; 85025; 85651; 86140

== ENCOUNTER → 2022-05-10 06:40 | Outpatient (CLI) | payer MEDICARE, OTHER, SELFPAY ==
--- NOTE | 2022-05-10 | DI.MRI.S_ITS ---
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 After the administration of contrast, axial 3D VIBE of the cranial vasculature and brain. Brain MRA: Non-contrast 3-D time of flight MR angiogram, with multiple cwulrrn-uvnfckagc-njwwuuvzth (MIP) reformats performed. Neck MRA: Axial and sagittal TruFISP through the neck. Coronal dynamic MR angiogram during administration of contrast in the arterial and venous phases, with 3-dimenstional nlzwbre-duthxechw-vnvnjdexic (MIP) reformats constructed from subtraction images. COMPARISON: None. FINDINGS: Image quality: Excellent. BRAIN: CSF spaces: Ventricles are normal in size and shape. Basal cisterns are patent. No extra-axial fluid collections. Brain: No intracranial bleeds or mass effects. Mild diffuse cerebral volume loss. Mild degree of patchy high FLAIR signal within the periventricular and subcortical white matter. Mckeon-white matter interface is normal. Diffusion weighted images show no acute ischemic insults. No abnormality within the vicinity of the trochlear nurse. Brainstem appears normal. Normal intravascular flow voids are present. No abnormal intracranial enhancement. Skull and face: Calvarial marrow signal is normal. Orbits appear normal. Sinuses: Sinuses and mastoids are clear. BRAIN MR ANGIOGRAM: Anterior circulation: Intracranial internal carotid arteries are normal in size and enhancement. The flow within the paired anterior cerebral arteries is normal and symmetric. The flow within the middle cerebral arteries is normal and symmetric. The anterior communicating artery is seen. No stenoses, occlusions, or aneurysms. Posterior circulation: The visualized portions of the vertebral arteries demonstrate normal caliber, and join to form a normal appearing basilar artery. The flow within the posterior cerebral arteries is normal and symmetric. No stenoses, occlusions, or aneurysms. NECK MR ANGIOGRAM: Carotids: Great vessels demonstrate a conventional anatomy as they arise from the aortic arch. The origins of the common carotid arteries appear patent. The calibers and courses of both common carotid arteries are normal. The bifurcation regions appear normal bilaterally. The internal carotid arteries demonstrate normal course and caliber. Posterior circulation: The origins of the vertebral arteries appear patent. More superior portions of both vertebral arteries demonstrate normal course and caliber, and join to form a normal appearing basilar artery. Miscellaneous: Subclavian arteries appear patent. Pre-contrast images through the neck show no soft tissue abnormalities. IMPRESSION: BRAIN MRI: 1. Volume loss and small vessel ischemic disease. 2. No acute process. No recent infarct. 3. No explanation for 4th nerve palsy. BRAIN MR ANGIOGRAM: Negative cerebral MR angiography. NECK MR ANGIOGRAM: 1. No internal carotid artery stenosis. 2. Patent bilateral vertebral arteries. Dictated by: Sánchez Perry M.D. on 05/10/2022 at 8:40 Approved by: Sánchez Perry M.D. on 05/10/2022 at 8:47
== END ==
PROVIDERS: Family Provider Family Medicine; PCP Family Medicine; Referring Provider Ophthalmology; Visit Provider Ophthalmology
DX: H49.11 Fourth [trochlear] nerve palsy, right eye (principal); H53.8 Other visual disturbances
CPT/HCPCS: 70548; 70553

== ENCOUNTER → 2022-06-13 15:52 | Outpatient (CLI) | payer MEDICARE, OTHER, SELFPAY ==
[2022-06-18 11:12] LABS: ANA Screen, IFA Negative (.)
[2022-06-21 19:54] LABS: MuSK Antibodies <1.0 U/mL (.)
== END ==
PROVIDERS: Family Provider Family Medicine; PCP Family Medicine; Referring Provider Ophthalmology; Visit Provider Ophthalmology
DX: H53.2 Diplopia (principal); H49.11 Fourth [trochlear] nerve palsy, right eye
CPT/HCPCS: 36415; 83519; 86038

== ENCOUNTER → 2022-07-16 11:47 | Outpatient (CLI) | payer MEDICARE, OTHER, SELFPAY ==
--- NOTE | 2022-07-16 11:49 | DI.RAD.S_ITS ---
PROCEDURE: XR HIP W PEL IF DONE RT 2V INDICATIONS: Radiculopathy, lumbar region, sacroiliitis TECHNIQUE: AP pelvis and lateral view of the right hip acquired. COMPARISON: [facility], [place], XR HIP W PEL IF DONE LT 2V, 02/23/2018, 8:04. FINDINGS: Bones: Patient is status post bilateral hip arthroplasty, with hardware components in expected positions. Right hip is anatomic. No gross hardware loosening or failure. No acute fracture or dislocation. Soft tissues: No suspicious soft tissue densities. IMPRESSION: Prior right total hip arthroplasty with anatomic right hip alignment. No evidence of hardware complication. No acute fracture or dislocation. Dictated by: Alex Novak M.D. on 07/16/2022 at 12:48 Approved by: Alex Novak M.D. on 07/16/2022 at 12:49
--- NOTE | 2022-07-16 11:49 | DI.RAD.S_ITS ---
PROCEDURE: XR LUMBAR SPINE 2-3V INDICATIONS: Radiculopathy, lumbar region, sacroiliitis TECHNIQUE: 3 views of the lumbar spine were acquired. COMPARISON: [facility], , -SPINE 2-3 VIEWS, 12/04/2009, 13:03. FINDINGS: Bones: 5 fon-rar-opclidl vertebrae are present. There is straightening of normal lumbar lordosis. Degenerative endplate changes, loss of disc height and bilateral facet arthrosis throughout lumbar spine is seen more prominent at L4-5 and L5-S1 levels. No vertebral body compression fractures. No suspicious bony lesions. Soft tissues: Overlying bowel gas pattern is normal. No suspicious soft tissue calcifications. IMPRESSION: Degenerative disc disease throughout lumbar spine more prominent at L4-5 and L5-S1 levels. No acute compression fracture or significant spondylolisthesis. Dictated by: Alex Novak M.D. on 07/16/2022 at 12:49 Approved by: Alex Novak M.D. on 07/16/2022 at 12:58
== END ==
PROVIDERS: Family Provider Family Medicine; PCP Family Medicine; Referring Provider Family Medicine; Visit Provider Family Medicine
DX: M46.1 Sacroiliitis, not elsewhere classified (principal); M51.16 Intervertebral disc disorders with radiculopathy, lumbar region; M51.17 Intervertebral disc disorders with radiculopathy, lumbosacral region; Z96.641 Presence of right artificial hip joint
CPT/HCPCS: 72100; 73502

== ENCOUNTER → 2022-09-23 08:31 | Outpatient (CLI) | payer MEDICARE, OTHER, SELFPAY ==
[2022-09-24 15:20] LABS: Alanine Aminotransferase 20 IU/L (<50); Albumin 4.1 g/dL (3.5-5.0); Albumin Globulin Ratio 1.3 (1.0-2.8); Alkaline Phosphatase 85 U/L (38-126); Aspartate Aminotransferase 27 IU/L (17-59); BUN Creatinine Ratio 18.8 (6-22); Bilirubin Total 0.7 mg/dL (0.2-1.3); Blood Urea Nitrogen 16 mg/dL (9-20); Carbon Dioxide 28 mmol/L (22-32); Chloride 101 mmol/L (98-107); Cholesterol 135 mg/dL (140-199); Estimated Glomerular Filt Rate > 60 mL/min (>60); Globulin 3.1 g/dL (1.7-4.1); Glucose 93 mg/dL (80-110); HDL Cholesterol 44 mg/dL (40-60); HEMOLYSIS < 15 (0-50); LDL Cholesterol Calculated 75 mg/dL (<100); Potassium 4.2 mmol/L (3.4-5.1); Sodium 140 mmol/L (137-145); Total Protein 7.2 g/dL (6.3-8.2); Triglycerides 79 mg/dL (35-150); VLDL Cholesterol Calculated 16 mg/dL (2-30)
== END ==
PROVIDERS: Family Provider Family Medicine; PCP Family Medicine; Referring Provider Family Medicine; Visit Provider Family Medicine
DX: E78.2 Mixed hyperlipidemia (principal); I10 Essential (primary) hypertension
CPT/HCPCS: 36415; 80053; 80061

== ENCOUNTER → 2022-09-24 09:48 | Outpatient (CLI) | payer MEDICARE, OTHER, SELFPAY ==
[2022-09-24 11:02] LABS: Add Manual Diff / Slide Review NO; Basophils Absolute Auto 0 /uL (0-100); Basophils Percent Auto 0.7 % (0-2); Eosinophils Absolute Auto 100 /uL (0-450); Eosinophils Percent Auto 1.4 % (2-4); Hematocrit 42.5 % (41-53); Hemoglobin 14.5 g/dL (13.5-17.5); Lymphocytes Absolute Auto 1200 /uL (1100-4500); Lymphocytes Percent Auto 23.8 % (25-40); Mean Corpuscular HGB Conc 34.2 % (30-36); Mean Corpuscular Hemoglobin 32.9 PG (26-34); Mean Corpuscular Volume 96.4 fL (80-100); Monocytes Absolute Auto 400 /uL (0-900); Monocytes Percent Auto 7.8 % (3-14); Neutrophils Absolute Auto 3400 /uL (1500-7000); Neutrophils Percent Auto 66.3 % (50-75); Platelet Count 220 X10^3/uL (150-400); Red Blood Cell Count 4.41 X10^6/uL (4.5-5.9); Red Cell Distribution Width 13.1 % (11.6-14.8); White Blood Cell Count 5.2 X10^3/uL (4.5-11.0)
[2022-09-24 11:19] LABS: HEMOLYSIS < 15 (0-50)
[2022-09-24 11:43] LABS: Alanine Aminotransferase 20 IU/L (<50); Albumin Globulin Ratio 1.6 (1.0-2.8); Alkaline Phosphatase 87 U/L (38-126); Aspartate Aminotransferase 25 IU/L (17-59); BUN Creatinine Ratio 24.7 (6-22); Bilirubin Total 0.6 mg/dL (0.2-1.3); Blood Urea Nitrogen 20 mg/dL (9-20); Calcium 9.1 mg/dL (8.4-10.2); Carbon Dioxide 27 mmol/L (22-32); Chloride 103 mmol/L (98-107); Cholesterol 124 mg/dL (140-199); Estimated Glomerular Filt Rate > 60 mL/min (>60); Globulin 2.5 g/dL (1.7-4.1); Glucose 105 mg/dL (80-110); HDL Cholesterol 50 mg/dL (40-60); LDL Cholesterol Calculated 63 mg/dL (<100); Potassium 4.3 mmol/L (3.4-5.1); Sodium 137 mmol/L (137-145); Total Protein 6.5 g/dL (6.3-8.2); Triglycerides 55 mg/dL (35-150)
[2022-09-24 11:58] LABS: TSH w/ Reflex to FT4 0.61 uIU/mL (0.47-4.68)
[2022-09-24 16:31] LABS: Prostate Specific Antigen 1.63 ng/mL (0.10-4.00)
[2022-09-24 20:09] LABS: LDL Cholesterol Direct 67 mg/dL (<100)
== END ==
PROVIDERS: Family Provider Family Medicine; PCP Family Medicine; Referring Provider Family Medicine; Visit Provider Family Medicine
DX: I10 Essential (primary) hypertension (principal); N40.1 Benign prostatic hyperplasia with lower urinary tract symptoms; E78.2 Mixed hyperlipidemia; Z12.5 Encounter for screening for malignant neoplasm of prostate; M54.16 Radiculopathy, lumbar region; F41.8 Other specified anxiety disorders; I73.00 Raynaud's syndrome without gangrene
CPT/HCPCS: 36415; 80053; 80061; 83721; 84153; 84443; 85025

== ENCOUNTER → 2023-03-28 08:47 | Outpatient (CLI) | payer MEDICARE, OTHER, SELFPAY ==
--- NOTE | 2023-03-28 08:49 | DI.MRI.S_ITS ---
PROCEDURE: MR LUMBAR SPINE WO CON INDICATIONS: Chronic low back pain TECHNIQUE: Noncontrast sagittal T1 spin echo and T2 fast echo, sagittal STIR, and T2 fast spin echo through the lumbar spine. In cases with scoliosis, additional coronal T2 fast spin echo may be performed. COMPARISON: [facility], MR, L-SPINE WITHOUT CONTRAST, 03/06/2005, 7:50. FINDINGS: Image quality: Excellent. Alignment and Curvature: There is normal bony alignment. Bone Marrow: Vertebral body hemangiomas noted in L2 and L3 Spinal Cord: Conus medullaris terminates at the L1 level. Visualized cord demonstrates normal signal and size. Paraspinous Soft Tissues: No paravertebral masses. T12-L1: Normal appearance. L1-L2: Normal appearance. L2-L3: Disc space narrowing and circumferential disc bulge results in mild central stenosis. Moderate bilateral foraminal stenosis. L3-L4: Disc space narrowing and circumferential disc bulge with hypertrophic facet joints results in qito-ho-njiygciy central stenosis. Severe left and moderate right foraminal stenosis L4-L5: Circumferential disc bulge, hypertrophic facet joints and ligamentum flavum laxity results in eabe-ze-rphjdbvj central stenosis . Moderate bilateral foraminal stenosis L5-S1: Disc space narrowing and circumferential disc bulge. No central stenosis. Moderate bilateral foraminal stenosis. IMPRESSION: Multilevel degenerative disc disease and arthropathy results in varying degrees of central and foraminal stenosis including mild to moderate central and severe foraminal stenosis at L3-4 Approved by: Joseph Villa M.D. on 03/28/2023 at 10:40
== END ==
PROVIDERS: Family Provider Family Medicine; PCP Family Medicine; Referring Provider Anesthesiology; Visit Provider Anesthesiology
DX: M51.37 Other intervertebral disc degeneration, lumbosacral region (principal); M47.816 Spondylosis without myelopathy or radiculopathy, lumbar region; M51.36 Other intervertebral disc degeneration, lumbar region; M48.061 Spinal stenosis, lumbar region without neurogenic claudication; M48.07 Spinal stenosis, lumbosacral region; M54.50 Low back pain, unspecified
CPT/HCPCS: 72148

== ENCOUNTER 2023-05-07 10:33 | Outpatient (CLI) | payer MEDICARE, OTHER, SELFPAY ==
--- NOTE | 2023-05-07 10:35 | DI.RAD.S_ITS ---
PROCEDURE: PAIN L/S TRANSFORAMINAL INJECT INDICATIONS: RADICULOPATHY COMPARISON: [facility], MR, MR LUMBAR SPINE WO CON, 03/28/2023, 8:55. FINDINGS: Fluoroscopic spot filming was performed to verify placement of spinal needles on the right at the L4-L5 and L5-S1 levels, as labeled on the films. Appropriate location of the needle tips was confirmed by injection of iodinated contrast. IMPRESSION: Intraprocedural examination demonstrating appropriate positions of the needles. Dictated by: Kuldeep Rollins M.D. on 05/07/2023 at 17:42 Approved by: Kuldeep Rollins M.D. on 05/07/2023 at 17:43
[2023-05-07 10:38] VITALS: BP 139/65; PULSE 69; RESP 14; TEMP 36.4; O2SAT 99
[2023-05-07 11:00] VITALS: BP 173/91; PULSE 72; RESP 20; O2SAT 99
[2023-05-07] MEDS: DEXAMETHASONE 10 MG/ML VIAL 20 MG INJ (11:04)
[2023-05-07 11:05] VITALS: BP 152/78; PULSE 71; RESP 14; O2SAT 100
[2023-05-07] MEDS: IOPAMIDOL 15 ML VIAL 3 ML INJ (11:05)
[2023-05-07 11:10] VITALS: BP 148/76; PULSE 73; RESP 14; O2SAT 99
--- NOTE | 2023-05-07 11:17 | P.PCN_ITS ---
Date/Time/Diagnoses Date of procedure: 05/07/23 Time of procedure: 11:00 Procedure Notes Physician: Anthony Brewer Total Fluoroscopy time (seconds): 33 Total sedation minutes: 0 Procedure in detail & Post-procedure care: Right L4-5 and L5-S1 Transforaminal Epidural Steroid Injection Indications: Tomas is presenting for treatment of lumbar radiculopathy with low back and leg pain. Preoperative diagnosis: Lumbar radiculopathy Postoperative diagnosis: Same Focused Examination: Ax3 Mood and affect are normal Vital Signs: VSS Consent: Following review of allergies and potential side effects/complications, including, but not necessarily limited to, infection, allergic reaction, local tissue breakdown, stroke, temporary or permanent nerve injury, paralysis, and possible , the patient indicated that they understood and agreed to proceed.? An informed consent document was signed by the patient, witnessed by a nurse and placed in the patient's chart.? Additionally, other treatment options including medications and physical therapy were reviewed with the patient. All questions were answered. Site was then marked. Anesthesia: Local Position: Prone Monitoring: NIBP, Pulse oximetry, 3 lead EKG Needle used: 22G 5 inch spinal needle Contrast: Isovue 300M Injectate: 7.5 mg Dexamethasone mixed with 1% lidocaine 1 ml and normal saline 1 mL per site (total 15 mg dexamethasone) Technique: The skin was prepped with chloraprep and draped in a sterile fashion. Time out was performed as per protocol. Oxygen applied via NC. Skin and subcutaneous structures of the needle entry site were infiltrated with 3mL of lidocaine 1%. Under fluoroscopic guidance, using an ipsilateral oblique view,?a 22 gauge 5 inch needle was advanced to the base of the right L4?pedicle.? The needle was advanced to the superio-posterior aspect of the neural foramen under lateral view.? Oblique and AP views were rechecked. No paresthesias noted by the patient during needle placement. In AP view and utilizing real-time digital subt raction fluoroscopy, 2 ml contrast was slowly injected. Epidural spread was observed without evidence for intravascular nor intrathecal uptake. Contrast spread was seen craniocaudally. The above injectate was then administered, and the needle was subsequently withdrawn. Skin and subcutaneous structures of the needle entry site were infiltrated with 3mL of lidocaine 1%. Under fluoroscopic guidance, using an ipsilateral oblique view,?a 22 gauge 5 inch needle was advanced to the base of the right L5? pedicle.? The needle was advanced to the superio-posterior aspect of the neural foramen under lateral view.? Oblique and AP views were rechecked. No paresthesias noted by the patient during needle placement. In AP view and utilizing real-time digital subtraction fluoroscopy, 2 ml contrast was slowly injected. Epidural spread was observed without evidence for intravascular nor intrathecal uptake. Contrast spread was seen craniocaudally. The above injectate was then administered, and the needle was subsequently withdrawn. Band-Aids applied to injection sites. EBL: less than 1 ml Complications: None Post Procedure: Patient was taken to the recovery and monitored. The patient was provided a Pain Log to continue to record the patient's response to the target- specific procedure prior to the patient's follow-up visit with the referring physician. Patient was stable upon discharge. Detailed post procedure instructions were provided. Patient was asked to call in the event of worsening pain, fever, weakness, numbness or bladder or bowel incontinence.
[2023-05-07 11:19] VITALS: BP 179/93; PULSE 74; RESP 16; O2SAT 98
== END 2023-05-07 11:26 | disposition home or self-care (01) ==
LOC: RAD 10:34
PROVIDERS: Family Provider Family Medicine; PCP Family Medicine; Referring Provider Anesthesiology; Visit Provider Anesthesiology
DX: M54.16 Radiculopathy, lumbar region (principal)
CPT/HCPCS: 64483; 64484; J1100

== ENCOUNTER → 2023-06-06 08:38 | Outpatient (CLI) | payer MEDICARE, OTHER, SELFPAY ==
[2023-06-06 10:34] LABS: Alanine Aminotransferase 16 IU/L (<50); Albumin 3.8 g/dL (3.5-5.0); Albumin Globulin Ratio 1.5 (1.0-2.8); Alkaline Phosphatase 83 U/L (38-126); Aspartate Aminotransferase 25 IU/L (17-59); BUN Creatinine Ratio 20.7 (6-22); Bilirubin Total 0.3 mg/dL (0.2-1.3); Blood Urea Nitrogen 18 mg/dL (9-20); Calcium 9.3 mg/dL (8.4-10.2); Carbon Dioxide 27 mmol/L (22-32); Chloride 104 mmol/L (98-107); Cholesterol 121 mg/dL (140-199); Estimated Glomerular Filt Rate > 60 mL/min (>60); Globulin 2.5 g/dL (1.7-4.1); Glucose 97 mg/dL (80-110); Sodium 137 mmol/L (137-145); Total Protein 6.3 g/dL (6.3-8.2); Triglycerides 99 mg/dL (35-150)
[2023-06-06 10:38] LABS: HDL Cholesterol 42 mg/dL (40-60); HEMOLYSIS < 15 (0-50); LDL Cholesterol Calculated 59 mg/dL (<100); Potassium 4.6 mmol/L (3.4-5.1)
== END ==
PROVIDERS: Family Provider Family Medicine; PCP Family Medicine; Referring Provider Family Medicine; Visit Provider Family Medicine
DX: E78.2 Mixed hyperlipidemia (principal); I10 Essential (primary) hypertension
CPT/HCPCS: 36415; 80053; 80061

== ENCOUNTER 2023-06-18 13:26 | Outpatient (CLI) | payer MEDICARE, OTHER, SELFPAY ==
[2023-06-18] VITALS (8 sets, daily range): BP systolic 118–151; BP diastolic 56–92; PULSE 64–79; RESP 10–20; TEMP 36.4; O2SAT 96–99
--- NOTE | 2023-06-18 13:30 | DI.RAD.S_ITS ---
PROCEDURE: PAIN L/SI FACET INJ/BLK 1STL INDICATIONS: SPONDYLOSIS COMPARISON: [facility], , PAIN L/S TRANSFORAMINAL INJECT, 05/07/2023, 11:00. FINDINGS: Fluoroscopic spot filming was performed to verify placement of spinal needles on the right at the along the courses of the L3, L4, and L5 nerve roots, as labeled on the films. Appropriate location of the needle tips was confirmed by injection of iodinated contrast. IMPRESSION: Intraprocedural examination demonstrating appropriate positions of the needles. Dictated by: Kuldeep Rollins M.D. on 06/18/2023 at 17:36 Approved by: Kuldeep Rollins M.D. on 06/18/2023 at 17:37
[2023-06-18] MEDS: MIDAZOLAM 2 MG/2 ML VIAL 1 MG IV (13:55)
[2023-06-18] MEDS: IOPAMIDOL 15 ML VIAL 3 ML INJ (14:00)
[2023-06-18] MEDS: BUPIVACAINE 0.5% (PF) 10 ML VIAL 5 ML INJ (14:00)
--- NOTE | 2023-06-18 16:33 | P.PCN_ITS ---
Date/Time/Diagnoses Date of procedure: 06/18/23 Time of procedure: 14:00 Procedure Notes Physician: Anthony Brewer Total Fluoroscopy time (seconds): 13 Total sedation minutes: 10 Procedure in detail & Post-procedure care: Right L3, 4, 5 Lumbar Medial Branch Blocks Indications: Tomas is presenting for treatment of lumbar spondylosis with low back pain. Preoperative diagnosis: Right lumbar spondylosis Postoperative diagnosis: Same Pre-procedure History: Patient demonstrates today moderate to severe non- radicular back pain without neurologic deficit aggravated by hyperextension yes Back pain greater than leg pain? yes Patient today has tenderness over the suspected joint(s) yes History of post-traumatic injury? no Hypertrophic arthropathy yes Back pain associated with suspected motion segment instability, hypermobility or pseudoarthrosis no Pre-testing pain score (VAS): 8/10 Focused Examination: Ax3 Mood and affect are normal Vital Signs: VSS ASA: 2 Consent: Following review of allergies and potential side effects/complications, including, but not necessarily limited to, infection, allergic reaction, local tissue breakdown, stroke, temporary or permanent nerve injury, paralysis, and possible , the patient indicated that they understood and agreed to proceed.? An informed consent document was signed by the patient, witnessed by a nurse and placed in the patient's chart.? Additionally, other treatment options including medications and physical therapy were reviewed with the patient. All questions were answered. Site was then marked. Anesthesia: After review of previous anesthetic history and IV conscious sedation, the patient was deemed safe to proceed with today's procedure with IV conscious sedation. IV sedation was accomplished with midazolam 1 mg administered by the RN after order by Dr. Brewer. Sedation was titrated to patient comfort during the course of the procedure. Patient remained responsive to all verbal commands. Position: Prone Monitoring: NIBP, Pulse oximetry, 3 lead EKG Needle used: 22 ga 3.5 inch spinal needle Contrast: Isovue 300M Injectate: 0.5% bupivacaine 1 mL per site Procedure: The patient was brought into the procedure room and positioned into the prone position. Skin was prepped with a Chloraprep solution, allowed to air dry, and then draped in sterile fashion.? The right L4-5 and L5-S1 facet joints were visually identified with fluoroscopy. Lidocaine 1% was used to anesthetize the skin over each target destination with a 25ga needle. A 22 ga, 3.5 inch spinal needle was advanced to the location of the medial branch at the junction of the superior articular process and the transverse process at L4, 5 and the base of the SAP of the sacrum using intermittent fluoroscopy in the AP view. Isovue 300M contrast 0.2ml was injected at each level outlining the medial borders for each level and the base of the SAP of the sacrum in the AP and lateral views. There was no evidence of vascular or intrathecal uptake. The above injectate was slowly injected at each target destination. At the end of the procedure the needles were withdrawn and Band-Aids were applied for a dressing. Post Procedure: Patient was taken to the recovery and monitored. The patient was provided a Pain Log to continue to record the patient's response to the target- specific procedure prior to the patient's follow-up visit with the referring physician. Patient was stable upon discharge. Detailed post procedure instructions were provided. Patient was asked to call in the event of worsening pain, fever, weakness, numbness or bladder or bowel incontinence. Postoperatively, today patient demonstrates the following changes with hyperextension and with tenderness over the suspected joint(s). Provacative testing using the Beltran's facet loading test Right side Directly before the block ?VAS (0-10) = 8/10 5 minutes after the block VAS (0-10) = 4/10 Percentage relief obtained with this diagnostic block 50 % Any improved physical functioning directly after the blocks? Range of motion Based on the medial branches blocked today, if the patient meets insurance criteria for radiofrequency, the treatment should result in the denervation of the right L4-5 and L5-S1 facet joint nerves. We would expect to denervate a total of 2 facets during the radiofrequency ablation.
== END 2023-06-18 14:29 | disposition home or self-care (01) ==
PROVIDERS: Family Provider Family Medicine; PCP Family Medicine; Referring Provider Anesthesiology; Visit Provider Anesthesiology
DX: M47.816 Spondylosis without myelopathy or radiculopathy, lumbar region (principal)
CPT/HCPCS: 64493; 64494; 99152; J2250

== ENCOUNTER 2023-07-16 09:15 | Outpatient (CLI) | payer MEDICARE, OTHER, SELFPAY ==
[2023-07-16] VITALS (7 sets, daily range): BP systolic 120–162; BP diastolic 63–74; PULSE 64–76; RESP 12–20; O2SAT 95–100
--- NOTE | 2023-07-16 09:16 | DI.RAD.S_ITS ---
PROCEDURE: PAIN L/SI FACET INJ/BLK 1STL INDICATIONS: SPONDYLOSIS COMPARISON: [facility], , PAIN L/SI FACET INJ/BLK 1STL, 06/18/2023, 13:56. FINDINGS: Fluoroscopic spot filming was performed to verify placement of spinal needles on the right along the courses of the L3, L4, and L5 nerve roots, as labeled on the films. Appropriate location of the needle tips was confirmed by injection of iodinated contrast. IMPRESSION: Intraprocedural examination demonstrating appropriate positions of the needles. Dictated by: Kuldeep Rollins M.D. on 07/16/2023 at 17:06 Approved by: Kuldeep Rollins M.D. on 07/16/2023 at 17:06
[2023-07-16] MEDS: MIDAZOLAM 2 MG/2 ML VIAL 1 MG IV (09:38)
[2023-07-16] MEDS: iopamidoL 15 ML VIAL 3 ML INJ (09:45)
[2023-07-16] MEDS: LIDOCAINE 2% INJ MDV 20ML 5 ML INJ (09:46)
--- NOTE | 2023-07-16 10:02 | P.PCN_ITS ---
Date/Time/Diagnoses Date of procedure: 07/16/23 Time of procedure: 09:30 Procedure Notes Physician: Anthony Brewer Total Fluoroscopy time (seconds): 10 Total sedation minutes: 10 Procedure in detail & Post-procedure care: Right L3, 4, 5 Lumbar Medial Branch Blocks Indications: Denzel is presenting for treatment of lumbar spondylosis with low back pain. Preoperative diagnosis: lumbar spondylosis Postoperative diagnosis: Same Pre-procedure History: Patient demonstrates today moderate to severe non- radicular back pain without neurologic deficit aggravated by hyperextension yes Back pain greater than leg pain? yes Patient today has tenderness over the suspected joint(s) yes History of post-traumatic injury? no Hypertrophic arthropathy yes Back pain associated with suspected motion segment instability, hypermobility or pseudoarthrosis no Pre-testing pain score (VAS): 7/10 Focused Examination: Ax3 Mood and affect are normal Vital Signs: VSS ASA: 2 Consent: Following review of allergies and potential side effects/complications, including, but not necessarily limited to, infection, allergic reaction, local tissue breakdown, stroke, temporary or permanent nerve injury, paralysis, and possible , the patient indicated that they understood and agreed to proceed.? An informed consent document was signed by the patient, witnessed by a nurse and placed in the patient's chart.? Additionally, other treatment options including medications and physical therapy were reviewed with the patient. All questions were answered. Site was then marked. Anesthesia: After review of previous anesthetic history and IV conscious sedation, the patient was deemed safe to proceed with today's procedure with IV conscious sedation. IV sedation was accomplished with midazolam 1 mg administered by the RN after order by Dr. Brewer. Sedation was titrated to patient comfort during the course of the procedure. Patient remained responsive to all verbal commands. Position: Prone Monitoring: NIBP, Pulse oximetry, 3 lead EKG Needle used: 22 ga 3.5 inch spinal needle Contrast: Isovue 300M Injectate: 2% lidocaine 1 mL per site Procedure: The patient was brought into the procedure room and positioned into the prone position. Skin was prepped with a Chloraprep solution, allowed to air dry, and then draped in sterile fashion.? The right L4-5 and L5-S1 facet joints were visually identified with fluoroscopy. Lidocaine 1% was used to anesthetize the skin over each target destination with a 25ga needle. A 22 ga, 3.5 inch spinal needle was advanced to the location of the medial branch at the junction of the superior articular process and the transverse process at L4,5 and the base of the SAP of the sacrum using intermittent fluoroscopy in the AP view. Isovue 300M contrast 0.2ml was injected at each level outlining the medial borders for each level and the base of the SAP of the sacrum in the AP and lateral views. There was no evidence of vascular or intrathecal uptake. The above injectate was slowly injected at each target destination. Post Procedure: Patient was taken to the recovery and monitored. The patient was provided a Pain Log to continue to record the patient's response to the target- specific procedure prior to the patient's follow-up visit with the referring physician. Patient was stable upon discharge. Detailed post procedure instructions were provided. Patient was asked to call in the event of worsening pain, fever, weakness, numbness or bladder or bowel incontinence. Postoperatively, today patient demonstrates the following changes with hyperextension and with tenderness over the suspected joint(s). Provacative testing using the Beltran's facet loading test Right side E Directly before the block ?VAS (0-10) = 7/10 5 minutes after the block VAS (0-10) = 2/10 Percentage relief obtained with this diagnostic block 71% Any improved physical functioning directly after the blocks? Range of motion Based on the medial branches blocked today, if the patient meets insurance criteria for radiofrequency, the treatment should result in the denervation of the right L4-5 and L5-S1 facet joint nerves. We would expect to denervate a total of 2 facets during the radiofrequency ablation.
== END 2023-07-16 10:12 | disposition home or self-care (01) ==
LOC: RAD 09:16
PROVIDERS: Family Provider Family Medicine; PCP Family Medicine; Referring Provider Anesthesiology; Visit Provider Anesthesiology
DX: M47.816 Spondylosis without myelopathy or radiculopathy, lumbar region (principal)
CPT/HCPCS: 64493; 64494; 99152; J2250

== ENCOUNTER 2023-10-08 12:07 | Outpatient (CLI) | payer MEDICARE, OTHER, SELFPAY ==
[2023-10-08] VITALS (9 sets, daily range): BP systolic 138–177; BP diastolic 72–92; PULSE 66–87; RESP 12–22; TEMP 36.3; O2SAT 93–98
--- NOTE | 2023-10-08 12:08 | DI.RAD.S_ITS ---
PROCEDURE: PAIN L/S MED/LAT N RFA INDICATIONS: Lumbar Spondylosis COMPARISON: None. FINDINGS: Fluoroscopic spot filming was performed to verify placement of spinal needles at the right L3, L4 and L5 level(s), as labeled on the films. Appropriate location(s) of the needle tip(s) was confirmed by injection of iodinated contrast. IMPRESSION: Intra procedural examination demonstrating appropriate positions of the needles. Dictated by: Alec Machuca M.D. on 10/08/2023 at 16:49 Approved by: Alec Machuca M.D. on 10/08/2023 at 16:49
[2023-10-08] MEDS: MIDAZOLAM 2 MG/2 ML VIAL 1 MG IV ×2 (12:56→13:02)
[2023-10-08] MEDS: BUPIVACAINE 0.5% (PF) 10 ML VIAL 5 ML INJ (13:03)
[2023-10-08] MEDS: LIDOCAINE 2% INJ MDV 20ML 5 ML INJ (13:04)
--- NOTE | 2023-10-08 13:27 | P.PCN_ITS ---
Date/Time/Diagnoses Date of procedure: 10/08/23 Time of procedure: 13:00 Procedure Notes Physician: Anthony Brewer Total Fluoroscopy time (seconds): 16 Total sedation minutes: 21 Procedure in detail & Post-procedure care: Right L3, 4, 5 Lumbar Medial Branch Radio Frequency Ablation Indications: Denzel presents for treatment of lumbar spondylosis with low back pain. Preoperative diagnosis: Lumbar spondylosis Postoperative diagnosis: Same Focused Examination: Ax3 Mood and affect are normal Vital Signs: VSS ASA: 2 Consent: Following review of allergies and potential side effects/complications, including, but not necessarily limited to, infection, allergic reaction, local tissue breakdown, stroke, temporary or permanent nerve injury, paralysis, and possible , the patient indicated that they understood and agreed to proceed.? An informed consent document was signed by the patient, witnessed by a nurse and placed in the patient's chart.? Additionally, other treatment options including medications and physical therapy were reviewed with the patient. All questions were answered. Site was then marked. Position: Prone Monitoring: NIBP, Pulse oximetry, 3 lead EKG Needle used: 18 guage, 100 mm, 10 mm active tip Anesthesia: Local with IV sedation. After review of previous anesthetic history and IV conscious sedation, the patient was deemed safe to proceed with today's procedure with IV conscious sedation. IV sedation was accomplished with midazolam 2 mg administered by the RN after order by Dr. Brewer. Sedation was t itrated to patient comfort during the course of the procedure. Patient remained responsive to all verbal commands. Procedure: The patient was brought into the procedure room and positioned into the prone position. Skin was prepped with a Chloraprep solution, allowed to air dry, and then draped in sterile fashion.? The right L4-5 and L5-S1 facet joints were visually identified with fluoroscopy. Lidocaine 1% was used to anesthetize the skin over each target destination with a 25ga needle. An 18 ga, 100 mm RFA needle with a 10 mm active tip was advanced to the location of the medial branch at the junction of the superior articular process and the transverse process at L4,5 and the base of the SAP of the sacrum using intermittent fluoroscopy in the oblique view with caudal tilt. AP and lateral radiographs were taken to confirm proper needle placement. No paresthesias were noted. The stylet was removed and the radiofrequency probe was inserted through the cannula. Each level was individually tested.? Motor stimulation up to 2V elicited multifidus twitching in the lumbar spine. There was no motor stimulation in the lower extremities. After negative aspiration, 1ml of 2% lidocaine was injected at each of the levels and radiofrequency denervation carried out using 80 degrees Celsius for 90 seconds. The needles were then rotated 90 degrees and a second ablation was performed at 80 degrees Celsius for 90 seconds. After ablation, 0.5% bupivacaine was injected in equal amounts among the sites (1 mL per site). At the end of the procedure the needles were withdrawn and Band-Aids were applied for a dressing. This procedure is expected to denervate the right L4-5 and L5-S1 facet joints. Post Procedure: Patient was taken to the recovery and monitored. The patient was provided a Pain Log to continue to record the patient's response to the target- specific procedure prior to the patient's follow-up visit with the referring physician. Patient was stable upon discharge. Detailed post procedure instructions were provided. Patient was asked to call in the event of worsening pain, fever, weakness, numbness or bladder or bowel incontinence. Complications: None
== END 2023-10-08 13:53 | disposition home or self-care (01) ==
PROVIDERS: Family Provider Family Medicine; PCP Family Medicine; Referring Provider Anesthesiology; Visit Provider Anesthesiology
DX: M47.816 Spondylosis without myelopathy or radiculopathy, lumbar region (principal)
CPT/HCPCS: 64494; 64635; 64636; 99152; J1100; J2250

== ENCOUNTER → 2024-02-27 08:44 | Outpatient (CLI) | payer MEDICARE, OTHER, SELFPAY ==
--- NOTE | 2024-02-27 | DI.CT.S_ITS ---
PROCEDURE: CT ABDOMEN PELVIS W CON INDICATIONS: Hemorrhage of anus and rectum TECHNIQUE: After the administration of intravenous contrast, axial sections acquired from the lung bases to the pubic symphysis. Coronal and sagittal reformats were performed. For radiation dose reduction, the following was used: automated exposure control, adjustment of mA and/or kV according to patient size. COMPARISON: None. FINDINGS: Image quality: Portions of the lower pelvis are suboptimally evaluated secondary to metallic streak artifact from bilateral hip arthroplasty. Lower Chest: No significant findings. ABDOMEN: Liver: No solid mass. Mild steatosis. 5 mm low-attenuation focus is present in the right patent lobe too small to definitively characterize. Gallbladder: No radiopaque gallstones or wall thickening. Biliary ducts: No biliary dilation. Pancreas: No ductal dilation. Spleen: Size is within normal limits. Adrenal Glands: No adrenal nodules. Kidneys and Ureters: No hydronephrosis. No solid mass. No complex renal cystic lesion which requires follow up. Simple left renal cysts. Stomach and Bowel: Normal colonic caliber, without significant wall thickening. Diverticulosis. Peritoneum: No abnormal intraperitoneal fluid. No free air. Ventral Wall: No significant ventral hernia. Abdominal Nodes: No retroperitoneal or mesenteric adenopathy by size criteria. Vessels: Aorta and inferior vena cava are normal in size. PELVIS: Pelvic Organs: Unremarkable. Bladder: No bladder wall thickening, accounting for underdistention. Pelvic Nodes: No enlarged lymph nodes. Miscellaneous: No inguinal hernias are seen. Bones: No aggressive osseous abnormality. IMPRESSION: Diverticulosis. No definitively identified source of bleeding. If concern persists, colonoscopy is recommended. Indeterminate low-attenuation focus within the liver which could represent a small cyst or hemangioma, although other etiologies cannot be definitively excluded. Dictated by: Alondra Kwok M.D. on 02/27/2024 at 14:56 Approved by: Alondra Kwok M.D. on 02/27/2024 at 15:09
== END ==
PROVIDERS: Family Provider Family Medicine; PCP Family Medicine; Referring Provider Family Medicine; Visit Provider Family Medicine
DX: K62.5 Hemorrhage of anus and rectum (principal); N28.1 Cyst of kidney, acquired; K57.90 Diverticulosis of intestine, part unspecified, without perforation or abscess without bleeding
CPT/HCPCS: 74177; Q9967

== ENCOUNTER → 2024-03-16 10:55 | Outpatient (CLI) | payer MEDICARE, OTHER, SELFPAY ==
--- NOTE | 2024-03-16 | DI.US.S_ITS ---
PROCEDURE: US ABDOMEN LIMITED INDICATIONS: MASS ON LIVER TECHNIQUE: Real-time scanning was performed of the abdominal and retroperitoneal organs, with image documentation. COMPARISON: [facility], CT, CT ABDOMEN PELVIS W CON, 02/27/2024, 10:05. FINDINGS: Liver: Measures 15 cm. Echogenicity is within normal limits. No mass or cyst identified. Gallbladder: Nondilated. No stones or sludge. Normal gallbladder wall thickness. No pericholecystic fluid. Negative sonographic Acuna's sign. Biliary ducts: Intrahepatic bile ducts are non-dilated. Extrahepatic bile duct caliber measures 6 mm. Normal is 6-7 mm or less in diameter, or 10 mm or less post-cholecystectomy. Pancreas: Not well seen due to overlying bowel gas. Kidneys: Incidental exophytic anechoic left renal cyst measuring 5.5 x 5 x 3.6 cm. There are thin septations. IMPRESSION: 1. No hepatic lesion identified. MRI liver could be considered for further evaluation. The hypodense focus seen on prior CT in the right lobe of the liver is of low suspicion. This most likely represents a small benign cyst or hemangioma. 2. No acute cholecystitis. No gallstones. 3. Incidental minimally complicated left renal cyst measuring 5.5 cm. Dictated by: Gary Zelaya M.D. on 03/16/2024 at 13:47 Approved by: Gary Zelaya M.D. on 03/16/2024 at 13:50
== END ==
PROVIDERS: Family Provider Family Medicine; PCP Family Medicine; Referring Provider Family Medicine; Visit Provider Family Medicine
DX: N28.1 Cyst of kidney, acquired (principal)
CPT/HCPCS: 76705

== ENCOUNTER 2024-03-23 08:12 | Day surgery (SDC) | payer MEDICARE, OTHER, SELFPAY ==
[2024-03-17 12:10] VITALS: BMI 27.6
[2024-03-23] VITALS (7 sets, daily range): BP systolic 113–140; BP diastolic 69–79; PULSE 81–98; RESP 12–18; TEMP 36.3–36.9; O2SAT 93–98; BMI 26.4
--- NOTE | 2024-03-23 08:40 | PM.PREOP ---
Pre-operative Note COVID-19 COVID-19 status: Not tested Interval Note History & Physical reviewed/Exam performed by Physician: Yes Changes to H&P: No ASA Class (for procedural sedation): III
[2024-03-23] MEDS: LACTATED RINGERS 1,000 ML 42 ML IV ×2 (08:42→10:15)
[2024-03-23] MEDS: ACETAMINOPHEN 325 MG TABLET 975 MG PO (08:43)
--- NOTE | 2024-03-23 08:51 | SUR.OPER ---
Supine on padded OR bed, head on pillow, arms secured on padded arm boards at <90 degrees abduction, legs uncrossed, safety belt at thigh, tape over blanket over lower legs.
[2024-03-23] MEDS: CEFAZOLIN 2 GM/100 ML PREMIX 100 ML IV (09:09)
[2024-03-23] MEDS: BUPIVACAINE 0.5% (PF) 30 ML, EPINEPHrine 0.15 MG INJ (09:15)
--- NOTE | 2024-03-23 10:31 | P.OP_ITS ---
Operative Date/Time/Diagnoses Date of procedure: 03/23/24 Time of procedure: 10:31 Pre-op diagnosis: Right inguinal hernia Post-op diagnosis: same Procedure & Clinicians Procedure: Open right inguinal hernia repair with mesh Same procedure as scheduled: Yes Surgeon: Isacc Dubois Cad Design Engineer: Leopoldo Barajas Anesthesia Type: General Operative Notes Procedure in detail: Preoperative antibiotic was administered. The patient was brought to the operating room and placed on the table in supine position general anesthesia was induced. The right groin was prepped and draped in the normal fashion and a time-out was performed. Roughly 10 mL of local anesthetic were injected into the skin and subcutaneous adipose tissue over the right groin. A 6 cm incision was made over the right inguinal canal. Dissection was carried down through the subcutaneous adipose tissue. We exposed the external oblique aponeurosis in the direction of the fibers. Additional local was injected deep to the aponeurosis. A 15 blade scalpel was used to ranulfo the external oblique aponeurosis. Metzenbaum scissors were used to carefully open the aponeurosis in the direction of the fibers taking care not to injure the underlying ilioinguinal nerve which was well seen and protected. We completely exposed the inguinal canal. The cord was dissected free from the inguinal ligament and floor of the inguinal canal and the external oblique aponeurosis was dissected off of the internal oblique taking care not to injure the hypogastric nerve. We encircled the cord with a Germania drain for retraction. There was a large indirect hernia sac that was dissected off the vas deferens and reduced into the abdomen. There was also a small direct protrusion at floor of the inguinal canal. We then placed a polypropylene mesh against the floor of the inguinal canal. The mesh was secured with multiple interrupted 3-0 Prolene sutures to the pubic tubercle and shelving edge of the inguinal ligament as well as to the conjoint tendon medially. We overlapped the tails to recreate an internal ring and secured the medial tail to the inguinal ligament with additional sutures. We injected some more local into the fatty tissue in the inguinal canal and cord. Finally, we removed the Germania drain and closed the external oblique fascia with a running 3-0 Vicryl suture. Skin was closed with interrupted 3-0 Vicryl dermal sutures and a running 4 Monocryl subcuticular stitch. EBL 15 mL The patient was awakened and brought to recovery room. Leopoldo MANE provided assistance with exposure, retraction and closure of incisions. Post-operative Condition: stable Disposition: PACU
== END 2024-03-23 11:15 | disposition home or self-care (01) ==
PROVIDERS: Family Provider Family Medicine; PCP Family Medicine; Referring Provider Surgery; Visit Provider Surgery
PROC: (CPT 49505; principal; 2024-03-23 09:45)
DX: K40.90 Unilateral inguinal hernia, without obstruction or gangrene, not specified as recurrent (principal)
CPT/HCPCS: 49505; J0171; J0330; J0690; J1100; J2405; J2704; J2765; J3010

== ENCOUNTER → 2024-03-31 16:57 | Outpatient (CLI) | payer MEDICARE, OTHER, SELFPAY ==
[2024-03-31 18:31] LABS: Add Manual Diff / Slide Review NO; Basophils Absolute Auto 0 /uL (0-100); Basophils Percent Auto 0.5 % (0-2); Eosinophils Absolute Auto 100 /uL (0-450); Eosinophils Percent Auto 2.1 % (2-4); Hematocrit 40.8 % (41-53); Hemoglobin 13.8 g/dL (13.5-17.5); Lymphocytes Absolute Auto 1400 /uL (1100-4500); Mean Corpuscular HGB Conc 33.9 % (30-36); Mean Corpuscular Hemoglobin 33.2 PG (26-34); Mean Corpuscular Volume 97.9 fL (80-100); Monocytes Absolute Auto 500 /uL (0-900); Monocytes Percent Auto 8.7 % (3-14); Neutrophils Absolute Auto 3500 /uL (1500-7000); Neutrophils Percent Auto 62.7 % (50-75); Platelet Count 298 X10^3/uL (150-400); Red Blood Cell Count 4.17 X10^6/uL (4.5-5.9); Red Cell Distribution Width 13.1 % (11.6-14.8); White Blood Cell Count 5.5 X10^3/uL (4.5-11.0)
[2024-03-31 19:01] LABS: BUN Creatinine Ratio 21.2 (6-22); Blood Urea Nitrogen 18 mg/dL (9-20); Calcium 9.7 mg/dL (8.4-10.2); Carbon Dioxide 29 mmol/L (22-32); Chloride 105 mmol/L (98-107); Estimated Glomerular Filt Rate > 60 mL/min (>60); Glucose 87 mg/dL (80-110); HEMOLYSIS < 15 (0-50); Sodium 139 mmol/L (137-145)
== END ==
PROVIDERS: Family Provider Family Medicine; PCP Family Medicine; Referring Provider Family Medicine; Visit Provider Family Medicine
DX: T14.8XXA Other injury of unspecified body region, initial encounter (principal)
CPT/HCPCS: 36415; 80048; 85025

== ENCOUNTER 2024-04-14 07:30 | Outpatient (CLI) | payer MEDICARE, OTHER, SELFPAY ==
[2024-04-14] VITALS (8 sets, daily range): BP systolic 119–146; BP diastolic 61–94; PULSE 64–74; RESP 13–108; TEMP 36.7; O2SAT 95–98
--- NOTE | 2024-04-14 08:00 | DI.RAD.S_ITS ---
PROCEDURE: PAIN L INTERLAMINAR/CAUDAL INJ INDICATIONS: RADICULOPATHY COMPARISON: None. FINDINGS: Fluoroscopic spot filming was performed to verify placement of spinal needles at the L3-4 level(s), as labeled on the films. Appropriate location(s) of the needle tip(s) was confirmed by injection of iodinated contrast. IMPRESSION: Fluoroscopic support for bilateral L3-4 interlaminar epidural steroid injections. Please see separate procedure note for further details. Dictated by: Wolf Weinstein M.D. on 04/14/2024 at 8:54 Approved by: Wolf Weinstein M.D. on 04/14/2024 at 8:55
[2024-04-14] MEDS: MIDAZOLAM 2 MG/2 ML VIAL 1 MG IV (08:17)
[2024-04-14] MEDS: DEXAMETHASONE 10 MG/ML VIAL INJ (08:20)
[2024-04-14] MEDS: iopamidoL 15 ML VIAL 3 ML INJ (08:21)
--- NOTE | 2024-04-14 09:04 | EKG_ITS ---
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
--- NOTE | 2024-04-14 09:39 | PC.NURSE ---
12 lead EKG done, Dr Brewer reviewed. Copy of EKG sent with patient to f/u with PCP. Patient denies any chest pain, SOB, H/A, or heart palpations. Has no questions at this time. Is steady on feet. updated on EKG at d/c.
--- NOTE | 2024-04-14 12:25 | P.PCN_ITS ---
Date/Time/Diagnoses Date of procedure: 04/14/24 Time of procedure: 08:00 Procedure Notes Physician: Anthony Brewer Total Fluoroscopy time (seconds): 11 Total sedation minutes: 5 Procedure in detail & Post-procedure care: L3-4 Interlaminar Epidural Steroid Injection Indications: Tomas is presenting for treatment of lumbar radiculopathy with low back and leg pain. Preoperative diagnosis: Lumbar radiculopathy Postoperative diagnosis: Same Focused Examination: Ax3 Mood and affect are normal Vital Signs: VSS ASA: 2 Consent: Following review of allergies and potential side effects/complications, including, but not necessarily limited to, infection, allergic reaction, local tissue breakdown, stroke, temporary or permanent nerve injury, paralysis, and possible , the patient indicated that they understood and agreed to procee d.? An informed consent document was signed by the patient, witnessed by a nurse and placed in the patient's chart.? Additionally, other treatment options including medications and physical therapy were reviewed with the patient. All questions were answered. Site was then marked. Anesthesia: After review of previous anesthetic history and IV conscious sedation, the patient was deemed safe to proceed with today's procedure with IV conscious sedation. IV sedation was accomplished with midazolam 1 mg administered by the RN after order by Dr. Brewer. Sedation was titrated to patient comfort during the course of the procedure. Patient remained responsive to all verbal commands. Position: Prone Monitoring: NIBP, Pulse oximetry, 3 lead EKG Needle used: 18 G 3.5? Tuohy Contrast: Isovue 300M Injectate: Dexamethasone 10 mg with 1% lidocaine 2 mL Technique: The skin was prepped with chloraprep and then draped in a sterile fashion. Time out was performed as per protocol. Oxygen applied via NC. Skin and subcutaneous structures of the needle entry site was then infiltrated with 3 mL of lidocaine 1%. Under AP, lateral and contralateral oblique fluoroscopic control, the Tuohy needle was guided into the L3-4 epidural space. The space was accessed with loss of resistance technique. Isovue 300M was then injected and the spread was consistent with the epidural space. There was no evidence for intravascular or intrathecal uptake. After negative aspiration, the above- mentioned injectate was then slowly administered and the needle withdrawn. The patient expressed no unusual discomfort or paresthesias during the injection. Band-Aids applied to injection sites. EBL: less than 1 ml Complications: None Post Procedure: Patient was taken to the recovery and monitored. The patient was provided a Pain Log to continue to record the patient's response to the target- specific procedure prior to the patient's follow-up visit with the referring physician. Patient was stable upon discharge. Detailed post procedure instructions were provided. Patient was asked to call in the event of worsening pain, fever, weakness, numbness or bladder or bowel incontinence.
== END 2024-04-14 09:20 | disposition home or self-care (01) ==
LOC: RAD 07:30
PROVIDERS: Family Provider Family Medicine; PCP Family Medicine; Referring Provider Anesthesiology; Visit Provider Anesthesiology
DX: M54.16 Radiculopathy, lumbar region (principal); I49.3 Ventricular premature depolarization
CPT/HCPCS: 62323; 93005; J1100; J2250

== ENCOUNTER → 2024-10-06 11:32 | Outpatient (CLI) | payer MEDICARE, OTHER, SELFPAY ==
[2024-10-06 12:44] LABS: C-Reactive Protein Quant < 0.5 mg/dL (<1.0)
[2024-10-06 13:20] LABS: Erythrocyte Sedimentation Rate 0 MM/HR (0-15)
== END ==
LOC: LAB 11:33
PROVIDERS: Family Provider Family Medicine; PCP Family Medicine; Referring Provider Ophthalmology; Visit Provider Ophthalmology
DX: R51.9 Headache, unspecified (principal)
CPT/HCPCS: 36415; 85651; 86140

== ENCOUNTER → 2024-10-08 07:39 | Outpatient (CLI) | payer MEDICARE, OTHER, SELFPAY ==
--- NOTE | 2024-10-08 | DI.US.S_ITS ---
PROCEDURE: US SCROTUM INDICATIONS: TESTICLE SWELLING RIGHT SIDE TECHNIQUE: Real-time scanning was performed of the scrotum and testicles, with image documentation. Color and pulse Doppler interrogation was performed of both testicles. COMPARISON: None. FINDINGS: Right: Testicle is normal in size at 4.8 x 3.4 x 2.9 cm, and homogenous in echotexture. Epididymis is normal in overall size and morphology. Moderate hydrocele. No varicoceles. Overlying scrotal skin is normal in thickness. Left: Testicle is normal in size at 4.0 x 2.0 x 3.2 cm, and homogeneous in echotexture. Epididymis is normal in overall size and morphology. No hydrocele or varicoceles. Overlying scrotal skin is normal in thickness. Doppler: Color and pulse Doppler demonstrate normal and symmetric arterial flow in both testicles. IMPRESSION: Moderate right hydrocele. Otherwise, normal appearance of the testes and epididymides. Dictated by: Alec Machuca M.D. on 10/08/2024 at 10:02 Approved by: Alec Machuca M.D. on 10/08/2024 at 10:04
== END ==
PROVIDERS: Family Provider Family Medicine; PCP Family Medicine; Referring Provider Family Medicine; Visit Provider Family Medicine
DX: N50.89 Other specified disorders of the male genital organs (principal); N43.3 Hydrocele, unspecified
CPT/HCPCS: 76870

== ENCOUNTER → 2025-03-21 09:46 | Outpatient (CLI) | payer MEDICARE, OTHER, SELFPAY ==
[2025-03-21 10:32] LABS: Add Manual Diff / Slide Review NO; Basophils Absolute Auto 0 /uL (0-100); Basophils Percent Auto 0.3 % (0-2); Eosinophils Absolute Auto 100 /uL (0-450); Eosinophils Percent Auto 1.9 % (2-4); Lymphocytes Absolute Auto 1300 /uL (1100-4500); Lymphocytes Percent Auto 23.8 % (25-40); Mean Corpuscular HGB Conc 33.4 % (30-36); Mean Corpuscular Hemoglobin 32.8 PG (26-34); Mean Corpuscular Volume 98.4 fL (80-100); Monocytes Absolute Auto 400 /uL (0-900); Monocytes Percent Auto 8.4 % (3-14); Neutrophils Absolute Auto 3500 /uL (1500-7000); Neutrophils Percent Auto 65.6 % (50-75); Platelet Count 197 X10^3/uL (150-400); Red Blood Cell Count 4.57 X10^6/uL (4.5-5.9); Red Cell Distribution Width 13.6 % (11.6-14.8); White Blood Cell Count 5.3 X10^3/uL (4.5-11.0)
[2025-03-21 10:55] LABS: Cholesterol 128 mg/dL (140-199); HDL Cholesterol 39 mg/dL (40-60); LDL Cholesterol Calculated 63 mg/dL (<100); Triglycerides 132 mg/dL (35-150)
[2025-03-21 11:25] LABS: Thyroid Stimulating Hormone 0.408 uIU/mL (0.47-4.68)
== END ==
PROVIDERS: Family Provider Family Medicine; PCP Family Medicine; Referring Provider Family Medicine; Visit Provider Family Medicine
DX: I10 Essential (primary) hypertension (principal); E78.2 Mixed hyperlipidemia; D64.9 Anemia, unspecified
CPT/HCPCS: 36415; 80061; 84443; 85025

== ENCOUNTER → 2025-03-25 10:34 | Outpatient (CLI) | payer MEDICARE, OTHER, SELFPAY ==
[2025-03-25 12:03] LABS: Free T3, Triiodothyronine Free 5.09 pg/mL (2.77-5.27); Free T4, Direct Thyroxine 1.12 ng/dL (0.78-2.19)
[2025-03-25 12:17] LABS: Thyroid Stimulating Hormone 0.832 uIU/mL (0.47-4.68)
[2025-03-25 12:36] LABS: Vitamin B12 421 pg/mL (239-931)
== END ==
LOC: LAB 10:35
PROVIDERS: Family Provider Family Medicine; PCP Family Medicine; Referring Provider Family Medicine; Visit Provider Family Medicine
DX: E05.90 Thyrotoxicosis, unspecified without thyrotoxic crisis or storm (principal); F09 Unspecified mental disorder due to known physiological condition; R79.89 Other specified abnormal findings of blood chemistry
CPT/HCPCS: 36415; 82607; 84439; 84443; 84481

== ENCOUNTER → 2025-03-30 08:44 | Outpatient (CLI) | payer MEDICARE, OTHER, SELFPAY ==
--- NOTE | 2025-03-30 08:50 | DI.MRI.S_ITS ---
PROCEDURE: MR HEAD/BRAIN WO/W CON INDICATIONS: COGNITIVE DYSFUNCTION TECHNIQUE: Noncontrast axial T1 spin echo, axial T2 fast spin echo, sagittal and axial FLAIR, coronal T2 fast spin echo, axial gradient echo, axial diffusion and ADC through the brain. After the administration of contrast, axial and coronal and sagittal T1 spin echo with fat saturation through the brain. COMPARISON: MR, MR STROKE, 05/10/2022, 7:14. FINDINGS: Image quality: Excellent. CSF spaces: Basal cisterns are patent. No extra-axial fluid collections. Ventricles are normal in size and shape. Brain: No midline shift. No intracranial bleeds or masses. No abnormal intracranial enhancement. There is mild cerebral volume loss for age. There are minimal periventricular white matter chronic small vessel ischemic change. The brainstem appears normal. Diffusion-weighted images demonstrate no acute infarct. No chronic ischemic insults. Normal intravascular flow voids are present. Skull and face: Calvarial marrow is normal in signal. Orbits appear normal. Sinuses: Sinuses and mastoids appear clear. IMPRESSION: No acute intracranial disease process. No acute or chronic infarcts. No abnormal intracranial mass or suspicious postcontrast enhancement. Dictated by: Mela Ontiveros MD, PhD on 03/30/2025 at 12:31 Approved by: Mela Ontiveros MD, PhD on 03/30/2025 at 12:36
== END ==
PROVIDERS: Family Provider Family Medicine; PCP Family Medicine; Referring Provider Family Medicine; Visit Provider Family Medicine
DX: F09 Unspecified mental disorder due to known physiological condition (principal)
CPT/HCPCS: 70553; A9579

== ENCOUNTER → 2025-04-25 16:24 | Outpatient (CLI) | payer MEDICARE, OTHER, SELFPAY ==
--- NOTE | 2025-04-25 16:28 | DI.RAD.S_ITS ---
PROCEDURE: XR LUMBAR SPINE 2-3V INDICATIONS: BACK PAIN TECHNIQUE: 3 views of the lumbar spine were acquired. COMPARISON: [facility], CR, XR LUMBAR SPINE 2-3V, 07/16/2022, 11:53. FINDINGS: Bones: 5 [id number] vertebrae are present. Mild dextroscoliosis has its apex about the L4 vertebral body. Anterolisthesis of T12 on L1 measures 6 mm and retrolisthesis of L2 on L3 measures 6 mm. There is otherwise normal bony alignment. Severe disc height loss at the T12-L1, L2-L3, L4-L5 and L5-S1 levels with adjacent endplate sclerosis and anterior osteophytosis. Chronic appearing compression fracture deformity of the L1 vertebral body has resulted in less than 25% anterior height loss. Left lateral wedging at L1 and L3 and right lateral wedging at L2 has similarly resulted in less than 25% height loss, respectively. No acute vertebral body compression fractures. No suspicious bony lesions. Soft tissues: Overlying bowel gas pattern is normal. No suspicious soft tissue calcifications. IMPRESSION: Grossly stable appearing multilevel spondylosis and spondylolisthesis without evidence of acute osseous abnormality. Dictated by: Puneet Adorno M.D. on 04/26/2025 at 10:31 Approved by: Puneet Adorno M.D. on 04/26/2025 at 10:34
== END ==
PROVIDERS: PCP Family Medicine; Referring Provider Family Medicine; Visit Provider Family Medicine
DX: M47.816 Spondylosis without myelopathy or radiculopathy, lumbar region (principal); M43.16 Spondylolisthesis, lumbar region; M43.8X6 Other specified deforming dorsopathies, lumbar region; M25.78 Osteophyte, vertebrae; M54.50 Low back pain, unspecified
CPT/HCPCS: 72100

== ENCOUNTER → 2025-04-27 18:40 | Outpatient (CLI) | payer MEDICARE, OTHER, SELFPAY ==
--- NOTE | 2025-04-27 18:43 | DI.MRI.S_ITS ---
PROCEDURE: MR LUMBAR SPINE WO CON INDICATIONS: BACK PAIN TECHNIQUE: Noncontrast sagittal T1 spin echo and T2 fast echo, sagittal STIR, and T2 fast spin echo through the lumbar spine. In cases with scoliosis, additional coronal T2 fast spin echo may be performed. COMPARISON: [facility], MR, MR LUMBAR SPINE WO CON, 03/28/2023, 8:55. FINDINGS: Image quality: Excellent. Alignment and Curvature: Trace, stable retrolisthesis L2-3 otherwise normal alignment. There is straightening of the normal lumbar lordosis, present previously. Bone Marrow: Stable vertebral body hemangiomas in the right aspect of L2 and L3. Endplate irregularity including type 2 Modic changes, spurring and Schmorl's nodes along the left aspect of L3 and L4. Mixed type one through three Modic changes along left lateral aspect of L4 and L5. No acute or subacute vertebral body fractures. Spinal Cord: Conus medullaris terminates at the L1 level. Visualized cord demonstrates normal signal and size. Paraspinous Soft Tissues: No paravertebral masses. Left upper pole renal cyst. T12-L1: Mild disc desiccation. L1-L2: Disc desiccation and mild disc height loss, stable. Minor circumferential disc bulge. No foraminal or central canal stenosis. L2-L3: Disc desiccation, severe disc height loss, and moderate circumferential disc osteophyte. Minor ligamentum flavum hypertrophy. Mild central canal and lateral recess narrowing. Mild left foraminal narrowing, stable. L3-L4: Disc desiccation, moderate to severe disc height loss, and moderate circumferential disc osteophyte without significant progression. Mild to moderate ligamentum flavum hypertrophy and moderate facet arthropathy, left worse than right. Left lateral recess narrowing and mild central canal narrowing as before. Mild right, and [id number] left foraminal stenosis. No change. L4-L5: Disc desiccation and moderate to severe disc height loss with moderate circumferential disc osteophyte. Moderate facet and ligamentum flavum arthropathy. Mild central canal narrowing. Mild bilateral foraminal stenosis. Minimal progression. L5-S1: Moderate facet and ligamentum flavum arthropathy. Disc desiccation, moderate diffuse disc height loss, and broad-based posterior disc osteophyte. Mild lateral recess narrowing. [id number] bilateral foraminal stenosis, stable. IMPRESSION: Multilevel lateral recess narrowing and mild central canal narrowing without significant progression since the previous exam. Moderate to severe multilevel disc and facet degeneration. Dictated by: Symone Rubio M.D. on 04/28/2025 at 15:29 Approved by: Symone Rubio M.D. on 04/28/2025 at 15:42
== END ==
PROVIDERS: PCP Family Medicine; Referring Provider Family Medicine; Visit Provider Family Medicine
DX: M47.26 Other spondylosis with radiculopathy, lumbar region (principal); M47.27 Other spondylosis with radiculopathy, lumbosacral region; M48.061 Spinal stenosis, lumbar region without neurogenic claudication; M48.07 Spinal stenosis, lumbosacral region; M51.46 Schmorl's nodes, lumbar region; D18.09 Hemangioma of other sites
CPT/HCPCS: 72148